=== PATIENT | female | born 1950 | race African-American/Black ===

== ENCOUNTER 2017-02-03 12:41 | Inpatient (IN) | payer OTHER ==
[~2017-02-03] VITALS: Ht 160 cm; Wt 80.3 kg
--- NOTE | ~2017-02-03 | D ---
[facility] [place] [address] DISCHARGE SUMMARY Name: CLAUDIA EVANS Room #: 206-[facility] IN M.R.#: [id number] Admission: 02/03/17 Attend Phys: Gustavo Hawkins MD Discharge: 02/06/17 Date of : 52 Report #: [id number] THIS REPORT FOR: //name// CC: Gustavo Valencia DATE OF SERVICE: 02/06/2017 DISCHARGE DIAGNOSES: 1. Status post mechanical mitral valve replacement. 2. Cervical degenerative joint disease. 3. Hypertension, atrial fibrillation. 4. Type 2 diabetes. CONSULTS: Cardiology. PROCEDURES: None. HOSPITAL COURSE: The patient is a 66-year-old female with a history of AFib, mechanical mitral valve, hypertension, presented to the ER secondary to shortness of breath. Please see details of admission dictated by Dr. Gustavo Hawkins on 02/03/2017. The patient was initially felt to have a little bit of volume overload. However, Cardiology did not feel it associated with CHF. They felt that her symptoms were noncardiac related. Additionally, she had a CT angio of her chest that was negative for PE, but did show pulmonary arterial hypertension. She also complained of some facial pain secondary to recent dental work and a CT was negative for abscess or any other acute abnormalities. Since coming in the hospital, she is feeling a lot better, has no more shortness of breath or chest pain. She was concerned about going home and wanted to go to rehab instead. Rehab saw her and felt that she was too functioning. Otherwise, she denies any complaints and nurses report no other problems. She was taken off her metoprolol because of periods of bradycardia. She does have a history of atrial fibrillation, may need am evaluation with a pacemaker in the future, although she is currently not symptomatic from this regards. DISCHARGE DISPOSITION: To home. DISCHARGE PHYSICAL EXAMINATION: VITAL SIGNS: Temperature 97, pulse 51, blood pressure 142/91, O2 sat 95% on room air. GENERAL: She is awake, alert, answering question appropriately, no acute respiratory distress. HEENT: Normocephalic, atraumatic. NECK: Supple. Pupils equal. CARDIOVASCULAR: Regular rate and rhythm. No murmurs. LUNGS: Clear to auscultation bilaterally. No crackles or wheeze. [facility] [address] [place] [address] DISCHARGE SUMMARY Name: CLAUDIA EVANS Room #: [address] [place] [address] IN M.R.#: [id number] Admission: 02/03/17 Attend Phys: Gustavo Hawkins MD Discharge: 02/06/17 Date of : 52 Report #: [id number] ABDOMEN: Soft, no distention or tenderness. EXTREMITIES: No edema. NEUROLOGIC: Nonfocal. DISCHARGE MEDICATIONS: She will go home on metformin 500 b.i.d., Zantac 75 b.i.d., Lasix 40 daily, aspirin 81 daily, Synthroid 75 mcg daily, trazodone p.r.n., Crestor 10 daily, lisinopril 5 daily, Os-Alessandro p.r.n., Coumadin at previous dosing, potassium chloride 20 mEq daily, Fosamax 70 daily, [place] p.r.n., Lidoderm patch daily, nortriptyline 10 daily, metoprolol. DIET: Cardiac, low sodium diabetic diet. ACTIVITY: As tolerated. FOLLOWUP: Follow up with Cardiology in 2 weeks. Follow up with primary care in 1 week and to seek immediate medical attention if symptoms worsen or recur or if she has any significant medical concerns. Discharge planning took 35 minutes. I explained to her discharge diagnoses, treatment plan and appropriate followup in detail. She had no further questions. By: [id number] Shiela Badillo MD /nt
--- NOTE | ~2017-02-03 | EKG ---
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 : 1950 Requested By: Solomon Mrianda Order Number: [id number] MD: Murtaza Mendoza Measurements Intervals [place] Rate: 90 P: [place]: QRS: 113 QRSD: 108 T: 44 QT: 360 QTc: 441 Interpretive Statements Atrial fibrillation Ventricular premature complex Right axis deviation Abnormal R-wave progression, late transition Abnormal T, consider ischemia, anterior leads Compared to ECG 12/01/2016 15:47:28 Ventricular premature complex(es) now present Electronically Signed On 02-04-2017 8:29:23 CDT by Murtaza Mendoza [email or web address] <ELECTRONICALLY SIGNED> By: Murtaza Mendoza MD, FACC 02/04/17 0829 1246 1246 Murtaza Mendoza MD, [facility] /EPI
--- NOTE | ~2017-02-03 | HC ---
[facility] [place] [address] CONSULTATION Name: CLAUDIA EVANS Room #: 206- ADM IN M.R.#: [id number] Admission: 02/03/17 Attend Phys: Gustavo Hawkins MD Discharge: Date of : 52 Report #: [id number] THIS REPORT FOR: //name// CC: Gustavo Valencia HISTORY OF PRESENT ILLNESS: The patient is a 66-year-old female, originally admitted with shortness of breath, question of paroxysmal nocturnal dyspnea. She was noted to have acute congestive heart failure. She was begun on diuresis. She does have pulmonary hypertension. She has a history of right neck pain for [address] of the head was negative. She is debilitated and we are seeing her in rehabilitation medicine consultation. PAST MEDICAL HISTORY: Includes atrial fibrillation, coronary artery disease, hypertension, she had mitral valve replacement, diabetes mellitus, and she had a prior CVA approximately 15 years ago. MEDICATIONS: Please see the full medication listing. ALLERGIES: No known drug allergies. SOCIAL HISTORY: Lives in a house with her sister, one step in, there are 12 steps down to the basement. She was noted to be premorbidly independent with ADLs and gait without adaptive aids. She was not on any O2 premorbidly. REVIEW OF SYSTEMS: No complaints of chest pain, shortness of breath, or abdominal discomfort. PHYSICAL EXAMINATION: GENERAL: A 66-year-old female, in obvious distress, pleasant, facies appeared symmetric. VITAL SIGNS: Last recorded temperature 98.2, pulse 72, respirations 18, and blood pressure 115/74. EXTREMITIES: Functional range of motion of both upper and lower extremities. Strength is a grade 4-/5. DTRs are trace to 1. She has been getting up to ambulate in the room with close assistance, tends to hold on to the wall, was not utilizing a walker. Did a bath earlier with the patient care assistance. ASSESSMENT: A 66-year-old female with the following problems list: 1. Generalized weakness and debilitation. 2. Acute congestive heart failure with subsequent diuresis. 3. Pulmonary hypertension. 4. History of mitral valve replacement. 5. Right-sided neck pain with negative CT scan. 6. Atrial fibrillation. 7. Coronary artery disease. 8. Prior history of a cerebrovascular accident [address] [address] CONSULTATION Name: CLAUDIA EVANS Room #: [facility] IN .R.#: [id number] Admission: 02/03/17 Attend Phys: Gustavo Hawkins MD Discharge: Date of : 52 Report #: [id number] PLAN: Therapy evaluations are underway. Insurance will need to be checked regarding rehab therapy issues. We will be glad to follow along with you. By: [id number] Praful Sheets MD /nt
--- NOTE | ~2017-02-03 | HC ---
[facility] [place] [address] CONSULTATION Name: CLAUDIA EVANS Room #: 206- ADM IN M.R.#: [id number] Admission: 02/03/17 Attend Phys: Gustavo Hawkins MD Discharge: Date of : 52 Report #: [id number] THIS REPORT FOR: //name// CC: Gustavo Valencia MD DATE OF SERVICE: 02/04/2017 HISTORY OF PRESENT ILLNESS: The patient is a 66-year-old single black female who I was asked to see in the hospital today after she complained of shoulder pain. The patient apparently underwent mitral valve replacement using a metal valve in [facility] in 2008. She has been chronically anticoagulated. She has a history of atrial fibrillation. Nuclear stress test in 2016 showed no ischemia with an ejection fraction of 70%. Echocardiogram in 2016 showed an ejection fraction of 55%, dilated left atrium. The mechanical valve had no significant regurgitation. The patient actually was just seen by my partner, Dr. Gregory 6 weeks ago. She had had edema and the dose of Lasix had been increased. She did complain of some neck pain at that time. The patient has been going to the pain clinic recently for the neck pain. She has both felt to have neuropathic pain and cervical radiculopathy. She was started on Tegretol. The patient was brought to the Emergency Room last night complaining of intermittent chest pain and a cough, some edema and headache. She was admitted for further evaluation and treatment. She denied any palpitations or syncope. PAST MEDICAL HISTORY: Otherwise significant for no other major surgical procedures. She has a history of hypertension, diabetes, hyperlipidemia, hypothyroidism. MEDICATIONS: Consist of Lasix, warfarin, Crestor, aspirin, lisinopril, trazodone, Synthroid, ranitidine, metformin. ALLERGIES: She has no known drug allergies. FAMILY HISTORY: Her grandfather had heart disease. SOCIAL HISTORY: She is single. She does have a child who is in [place] with a sister. No smoking or alcohol abuse. 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 REVIEW OF SYSTEMS: No history of stroke, asthma, peptic ulcer disease, liver disease, kidney disease, cancer, psychiatric illness, chronic skin condition. PHYSICAL EXAMINATION: GENERAL: Revealed a middle-aged female lying in bed. She appeared in no distress. [address] [place] [address] CONSULTATION Name: CLAUDIA EVANS Room #: [address] [place] [address] IN M.R.#: [id number] Admission: 02/03/17 Attend Phys: Gustavo Hawkins MD Discharge: Date of : 52 Report #: [id number] VITAL SIGNS: She had a blood pressure 114/60, pulse 60. She is afebrile. HEENT: She is anicteric. Conjunctivae are pink. Mucous membranes are moist. NECK: Veins nondistended. No carotid bruits heard. CHEST: Clear to auscultation. CARDIAC: Regular rate and rhythm. A metallic mitral opening and closing sound, grade 2 systolic ejection murmur. ABDOMEN: Soft, nontender. EXTREMITIES: Had no edema. Dorsalis pedis pulse 1+ bilaterally. SKIN: Warm and dry. NEUROLOGIC: Nonfocal. ECG showed atrial fibrillation, right bundle branch block. LABORATORY WORK: Sodium 138, potassium 4.1, creatinine 0.8, glucose 198. Troponin 0.04. INR was 2.3. White blood cell count 7.2, hemoglobin 12.8, hematocrit 39.5. She had a chest x-ray done in the Emergency Room last night that showed elevated right hemidiaphragm, cardiomegaly. She had a CT scan of the chest using a PE protocol that showed pulmonary hypertension findings but no pulmonary embolus. IMPRESSION AND RECOMMENDATIONS: 1. Chest pain. Suspect noncardiac. No history of coronary artery disease. Nuclear stress test last fall showed no ischemia. I would not recommend repeat stress testing at this time. 2. Previous mitral valve replacement. I would continue chronic anticoagulation and maintain an INR of 2.5-3.5. 3. Hypertension. The patient has been on an MARY inhibitor. 4. Hyperlipidemia. The patient is on a statin drug. 5. Diabetes. 6. Permanent atrial fibrillation. Rate controlled. The patient is anticoagulated. 7. Neck pain secondary to neuropathy. <ELECTRONICALLY SIGNED> By: Praful Wright MD, [facility] 02/06/17 0916 0929 1433 Praful Wright MD, FACC /nt
[~2017-02-03 12:41] MED LIST: ALENDRONATE SOD70 MG PO; ASPIRIN EC81 M1 PO; CALCIUM 500 +1 EAC5 PO; COCET PLUS TAB1 EACH PO; COUMADIN; COUMADIN 4 MG TA4 M1 PO; COUMADIN 5 MG TA5 M1 PO; CRESTOR10 MG PO; DESYREL50 MG PO; ENOXAPARIN80 MG/0.1 SUBQ; FUROSEMIDE 40 M40 MG PO; GLUCOPHAGE500 MG PO; HYDROCODONE-AP1 EAC6 PO; KLOR-CON 1010 MEQ PO; LEVOTHROID; LIDODERM 5%1 PATC1 TRANSDERM; METOPROLOL SUCC25 M1 PO; NORCO 5-325 TA1 EACH PO; NORTRIPTYLINE H10 M2 PO; OSELB75 PO; PRINIVIL5 MG PO; RANITIDINE 150150 MG PO; SYNTHROID100 MCG PO; TEGRETOL200 MG PO; TOPROL XL25 MG PO; VITAMIN D31000 UNI2 PO; ZOCOR80 MG PO
[2017-02-03 12:44] VITALS: BP 126/74
[2017-02-03 13:33] LABS: ABG SAMPLE TYPE ARTERIAL; BE(vivo) 5.1 mmol/L (-2 to +3); HCO3 30.1 mmol/L (22.0-26.0); LACTATE 1.07 mmol/L (0.5-2.0); O2(CT) 17.6 mL/dL (15.0-23.0); O2Hb 89.3 % (92.0-98.0); PCO2 45.4 mmHg (35.0-45.0); PO2 57.2 mmHg (80.0-100.0); pH 7.439 (7.360-7.450); sO2 90.5 % (92.0-98.0); tCO2 31.5 mmol/L (24.0-30.0)
[2017-02-03 13:35] LABS: STICK SITE R.RADIAL
[2017-02-03 13:36] LABS: ABG COMMENT NO COMPLICATIONS.
[2017-02-03 13:39] LABS: BASOPHILS 1.2 % (0.0-2.0); EOSINOPHILS 1.4 % (0.0-3.0); HEMATOCRIT 41.8 % (37.0-47.0); HEMOGLOBIN 13.3 gm/dL (12.0-15.0); LYMPHOCYTES 20.9 % (24.0-44.0); MCH 25.5 pg (26.0-34.0); MCHC 31.8 g/dL (28.0-37.0); MCV 80.2 fL (80.0-100.0); MONOCYTES 9.2 % (1.0-8.0); PLATELET COUNT 189 thou/uL (150-400); POLYS 67.3 % (36.0-66.0); RBC 5.21 mil/uL (4.20-5.00); RDW 16.5 % (10.5-14.5)
[2017-02-03 13:42] LABS: MANUAL DIFF NO
[2017-02-03 13:47] LABS: ANION GAP 6 mmol/L (7-16); BUN 14 mg/dL (7-18); CALCIUM 8.8 mg/dL (8.5-10.1); CHLORIDE 102 mmol/L (98-107); CO2 30 mmol/L (21-32); CREATININE 0.7 mg/dL (0.6-1.0); GLUCOSE 112 mg/dL (74-106); SODIUM 138 mmol/L (136-145)
[2017-02-03 13:52] LABS: INR 2.3; PROTIME 23.4 Seconds (9.3-11.4)
[2017-02-03 14:00] LABS: NT-PRO BRAIN NAT PEPTIDE 137 pg/mL (<300); TROPONIN-I < 0.04 ng/mL (<0.04-0.07)
[2017-02-03 17:27] VITALS: BP 130/74
[2017-02-03 17:45] VITALS: BP 153/69
[2017-02-03 19:52] VITALS: BP 129/64
[2017-02-03 23:46] VITALS: BP 129/80
[2017-02-04 00:35] LABS: ABSOLUTE NEUTROPHILS 4.9 thou/uL (1.4-8.2); BASOPHILS 0.9 % (0.0-2.0); EOSINOPHILS 2.4 % (0.0-3.0); HEMATOCRIT 39.5 % (37.0-47.0); HEMOGLOBIN 12.8 gm/dL (12.0-15.0); LYMPHOCYTES 17.4 % (24.0-44.0); MCH 25.7 pg (26.0-34.0); MCHC 32.3 g/dL (28.0-37.0); MCV 79.4 fL (80.0-100.0); MONOCYTES 11.3 % (1.0-8.0); PLATELET COUNT 200 thou/uL (150-400); RBC 4.97 mil/uL (4.20-5.00); RDW 16.7 % (10.5-14.5); WBC 7.2 thou/uL (4.0-11.0)
[2017-02-04 00:39] LABS: MANUAL DIFF NO
[2017-02-04 00:50] LABS: ANION GAP 8 mmol/L (7-16); BUN 17 mg/dL (7-18); CHLORIDE 97 mmol/L (98-107); CO2 33 mmol/L (21-32); CREATININE 0.8 mg/dL (0.6-1.0); GLUCOSE 198 mg/dL (74-106); POTASSIUM 4.1 mmol/L (3.5-5.1); SODIUM 138 mmol/L (136-145); TROPONIN-I < 0.04 ng/mL (<0.04-0.07)
[2017-02-04 03:40] VITALS: BP 113/61
[2017-02-04 07:59] VITALS: BP 114/61
[2017-02-04 12:12] VITALS: BP 104/52
[2017-02-04 16:39] VITALS: BP 113/68
[2017-02-04 19:54] VITALS: BP 108/64
[2017-02-05 03:15] VITALS: BP 108/50
[2017-02-05 03:35] LABS: INR 2.2; PROTIME 22.4 Seconds (9.3-11.4)
[2017-02-05 07:22] VITALS: BP 115/74
[2017-02-05 08:45] VITALS: BP 115/74
[2017-02-05 12:03] VITALS: BP 105/68
[2017-02-05 16:16] VITALS: BP 113/67
[2017-02-05 19:36] VITALS: BP 153/74
[2017-02-06] VITALS (8 sets, daily range): BP systolic 114–142; BP diastolic 61–91
[2017-02-06 04:08] LABS: HEMATOCRIT 41.1 % (37.0-47.0); HEMOGLOBIN 13.2 gm/dL (12.0-15.0); MCH 25.7 pg (26.0-34.0); MCHC 32.2 g/dL (28.0-37.0); MCV 79.8 fL (80.0-100.0); RBC 5.15 mil/uL (4.20-5.00); WBC 5.4 thou/uL (4.0-11.0)
[2017-02-06 04:17] LABS: CALCIUM 8.9 mg/dL (8.5-10.1); CREATININE 0.7 mg/dL (0.6-1.0); POTASSIUM 3.7 mmol/L (3.5-5.1)
[2017-02-06 04:18] LABS: INR 2.1; PROTIME 21.6 Seconds (9.3-11.4)
== END 2017-02-06 18:30 | disposition home health service (06) | DRG 313 ==
LOC: ER 12:41 → EROBS 15:36 → 2N 15:36
PROVIDERS: Emergency Medicine; Family Medicine; Internal Medicine Cardiovascular Disease; Nurse Practitioner
DX: R07.9 Chest pain, unspecified (principal); I11.0 Hypertensive heart disease with heart failure; E78.5 Hyperlipidemia, unspecified; E03.9 Hypothyroidism, unspecified; I48.2 Chronic atrial fibrillation; E11.40 Type 2 diabetes mellitus with diabetic neuropathy, unspecified; I25.10 Atherosclerotic heart disease of native coronary artery without angina pectoris; R53.81 Other malaise; M47.812 Spondylosis without myelopathy or radiculopathy, cervical region; I50.9 Heart failure, unspecified; Z82.49 Family history of ischemic heart disease and other diseases of the circulatory system; Z86.73 Personal history of transient ischemic attack (TIA), and cerebral infarction without residual deficits; Z87.891 Personal history of nicotine dependence; Z95.2 Presence of prosthetic heart valve
CPT/HCPCS: 10081

== ENCOUNTER 2017-10-24 05:38 | Day surgery (SDC) | payer OTHER ==
[~2017-10-24] VITALS: Ht 160 cm; Wt 77.6 kg
--- NOTE | ~2017-10-24 | S ---
[facility] [place] [address] SURGICAL PATH RPT PROCEDURE Name: CLAUDIA EVANS Room #: DEP [facility]..#: [id number] Admission: 10/24/17 Date of : 52 Discharge: 10/24/17 Report #: [id number] Path Case #: [id number] PATHOLOGY REPORT COLLECTION DATE: 10/24/2017 RECEIVED DATE: 10/24/2017 SUBMITTING PHYS: Dr. Carlos Enrique Panchal OTHER PHYS: Dr. Dai Valencia SPECIMEN(S) RECEIVED: A.Pretibial mass * * * * * * * * * * * * FINAL DIAGNOSIS: Soft tissue mass, "pretibial mass", excision: - Angioleiomyoma. COMMENT: Properly-controlled immunohistochemical stains are performed. Block A1 CD34 - Highlights the vascular spaces. SMA - Spindled cells reactive. S100 - Spindled cells nonreactive. (CLW:aurora; 10/28/2017) PATHOLOGIST: Arielle Miller M.D. REPORT ELECTRONICALLY SIGNED BY: Arielle Miller M.D. DATE/TIME: 10/28/2017 16:44 * * * * * * * * * * * * GROSS PATHOLOGY: Received in formalin labeled "Claudia Evans, pretibial mass" and consists of an unoriented ellipse of brown skin measuring 1.2 cm in length, 0.7 cm wide, and 0.5 cm thick. An obvious epidermal lesion is not grossly identified. The specimen is inked and totally submitted A1-A2, A2 tips. (EMMY; 10/24/2017) CLINICAL HISTORY: Mass left knee area INITIAL CPT CODE(S): A; 21055, 48718, 55857, 06249 [facility] [address] [place] [address] SURGICAL PATH RPT PROCEDURE Name: CLAUDIA EVANS Room #: DEP [facility] M.R.#: [id number] Admission: 10/24/17 Date of : 52 Discharge: 10/24/17 Report #: [id number] Path Case #: [id number] [address] [facility] , [place] [address] Technical services performed by [facility] at [address] [place] [address], [facility] [address] [address]. [facility] [address] [place] [address] PHONE: [phone] DIRECTOR: Arsen Devine M.D. * * * END OF REPORT * * *
--- NOTE | ~2017-10-24 | O ---
[facility] [place] [address] OPERATIVE REPORT Name: CLAUDIA EVANS Room #: DEP [facility]..#: [id number] Admission: 10/24/17 Attend Phys: Carlos Enrique Panchal MD Discharge: 10/24/17 Date of : 52 Report #: [id number] THIS REPORT FOR: //name// CC: Dai Panchal DATE OF SERVICE: 10/24/2017 PATIENT OF: Dr. Carlos Enrique Panchal and Dr. Dai Valencia. PREOPERATIVE DIAGNOSIS: Painful left pretibial 1.5 cm mass with need for chronic anticoagulation. POSTOPERATIVE DIAGNOSIS: Painful left pretibial 1.5 cm mass with need for chronic anticoagulation. PROCEDURE: Excision of 1.5 cm x 1 cm skin and subcutaneous left pretibial mass with complex layered closure and extensive hemostasis. SURGEON: Carlos Enrique Panchal MD ANESTHESIA: Local. The patient was brought to the operating room and placed on operative table in the supine position. The patient chronically was anticoagulated on warfarin as left on her anticoagulation. The patient was placed on the operative table in the supine position. Left leg was then prepped and draped in a sterile fashion. Skin and subcutaneous tissue were then infiltrated with 0.5% Marcaine and 1% Xylocaine with epinephrine. An elliptical skin incision was performed around this 1.5 x 1 cm mass using #15 scalpel blade. Hemostasis obtained using the electrocautery. Meticulous hemostasis was obtained using electrocautery due to the patient's anticoagulation. The mass was excised down to the fascia. It was excised and sent to pathology for permanent study. After assuring hemostasis was intact, the deep and superficial subcutaneous tissue was then reapproximated using simple interrupted 4-0 Monocryl sutures. Skin was then closed using interrupted vertical mattress 4-0 nylon sutures. The wound was then dressed with Telfa, 4 x 4 gauze, sponge, Kerlix, [place] wrap. The patient was then taken to the outpatient area, awake, alert and in good condition. Estimated blood loss was less than 5 mL and the patient tolerated the procedure well. All sponge, lap and instrument counts correct times 2. <ELECTRONICALLY SIGNED> By: Carlos Enrique Panchal MD 10/29/17 1111 1422 1523 Carlos Enrique Panchal MD /nt
[~2017-10-24 05:38] MED LIST changes: -DESYREL50 MG PO; -LIDODERM 5%1 PATC1 TRANSDERM; +LIDODERM1 EACH TOP; +POTASSIUM20 PO; +TRAZODONE HCL50 MG PO
[2017-10-24 12:52] VITALS: BP 115/84
[2017-10-24] MEDS ORDERED: NORCO 5-325 TA1 EACH PO (14:26)
[2017-10-24 14:39] VITALS: BP 115/84
== END 2017-10-24 16:44 | disposition home or self-care (01) ==
LOC: TBA 05:38 → OR 05:38
DX: D16.22 Benign neoplasm of long bones of left lower limb (principal); I11.0 Hypertensive heart disease with heart failure; I50.9 Heart failure, unspecified; I48.91 Unspecified atrial fibrillation; E11.9 Type 2 diabetes mellitus without complications; E78.00 Pure hypercholesterolemia, unspecified; K21.9 Gastro-esophageal reflux disease without esophagitis; Z98.890 Other specified postprocedural states; Z79.82 Long term (current) use of aspirin; Z95.2 Presence of prosthetic heart valve; Z86.73 Personal history of transient ischemic attack (TIA), and cerebral infarction without residual deficits; Z79.01 Long term (current) use of anticoagulants
CPT/HCPCS: 50010; 50101; 50386; 50403; 51636; 56524; 56526; 56528

== ENCOUNTER 2017-12-19 18:59 | Inpatient (IN) | payer OTHER ==
[~2017-12-19] VITALS: Ht 162.6 cm; Wt 75.7 kg
--- NOTE | ~2017-12-19 | EKG ---
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 : 1950 Requested By: Malika Peñaloza Order Number: [id number] MD: Daniel Houston Measurements Intervals [place] Rate: 57 P: [place]: QRS: 71 QRSD: 115 T: QT: 395 QTc: 385 Interpretive Statements Atrial fibrillation Incomplete right bundle branch block Nonspecific T abnormalities, lateral leads Compared to ECG 02/03/2017 12:46:34 Incomplete right bundle-branch block now present Ventricular premature complex(es) no longer present Right-axis deviation no longer present Possible ischemia no longer present T-wave abnormality still present Electronically Signed On 12-20-2017 13:24:29 SALVAGE DIVER by Daniel Houston [email or web address] <ELECTRONICALLY SIGNED> By: Daniel Houston MD 12/20/17 1324 30 30 Daniel Houston MD /EPI
[2017-12-19 19:09] VITALS: BP 150/55
[2017-12-19 19:57] LABS: ABSOLUTE NEUTROPHILS 3.8 thou/uL (1.4-8.2); BASOPHILS 0.8 % (0.0-2.0); EOSINOPHILS 1.6 % (0.0-3.0); HEMATOCRIT 41.2 % (37.0-47.0); HEMOGLOBIN 13.2 gm/dL (12.0-15.0); LYMPHOCYTES 30.1 % (24.0-44.0); MCH 25.8 pg (26.0-34.0); MCHC 32.1 g/dL (28.0-37.0); MCV 80.6 fL (80.0-100.0); PLATELET COUNT 158 thou/uL (150-400); POLYS 58.5 % (36.0-66.0); RBC 5.12 mil/uL (4.20-5.00); RDW 16.6 % (10.5-14.5); WBC 6.5 thou/uL (4.0-11.0)
[2017-12-19 20:09] LABS: ANION GAP 6 mmol/L (7-16); BUN 14 mg/dL (7-18); CALCIUM 9.5 mg/dL (8.5-10.1); CHLORIDE 104 mmol/L (98-107); CO2 31 mmol/L (21-32); CREATININE 1.1 mg/dL (0.6-1.0); GLUCOSE 191 mg/dL (74-106); POTASSIUM 3.8 mmol/L (3.5-5.1); SODIUM 141 mmol/L (136-145)
[2017-12-19 20:17] LABS: TROPONIN-I < 0.04 ng/mL (<0.06)
[2017-12-19 21:08] LABS: INR 1.9; PROTIME 19.7 Seconds (9.3-11.4)
[2017-12-19 21:57] LABS: URINE BILIRUBIN NEGATIVE (Negative); URINE BLOOD TRACE (Negative); URINE CLARITY CLEAR; URINE COLOR YELLOW; URINE GLUCOSE-RANDOM* NEGATIVE (Negative); URINE KETONES NEGATIVE (Negative); URINE LEUKOCYTES-REFLEX NEGATIVE (Negative); URINE NITRITE-REFLEX NEGATIVE (Negative); URINE PROTEIN (DIPSTICK) TRACE (Negative); URINE SPECIFIC GRAVITY 1.025 (1.005-1.035); URINE UROBILINOGEN 0.2 E.U./dl (0.2-1.0)
[2017-12-19 22:10] VITALS: BP 129/41
[2017-12-19 23:09] VITALS: BP 118/71
[2017-12-19 23:50] VITALS: BP 126/70
[2017-12-20 04:21] VITALS: BP 147/747
[2017-12-20 05:21] LABS: HEMATOCRIT 41.6 % (37.0-47.0); HEMOGLOBIN 13.2 gm/dL (12.0-15.0); MCH 25.7 pg (26.0-34.0); MCHC 31.7 g/dL (28.0-37.0); MCV 81.1 fL (80.0-100.0); RBC 5.14 mil/uL (4.20-5.00); RDW 16.6 % (10.5-14.5); WBC 7.5 thou/uL (4.0-11.0)
[2017-12-20 05:33] LABS: CALCIUM 9.5 mg/dL (8.5-10.1); CREATININE 0.9 mg/dL (0.6-1.0); INR 2.2; POTASSIUM 4.3 mmol/L (3.5-5.1); PROTIME 22.7 Seconds (9.3-11.4)
[2017-12-20 08:19] VITALS: BP 135/68
[2017-12-20] MEDS ORDERED: LEVAQUIN 500 M500 M2 PO (10:28)
[2017-12-20] MEDS ORDERED: PREDNISONE 10 M10 MG PO (10:29)
[2017-12-20 11:03] VITALS: BP 135/68
== END 2017-12-20 12:32 | disposition home or self-care (01) | DRG 189 ==
LOC: ER 18:59 → EROBS 21:37 → 4E 21:37
PROVIDERS: Nurse Practitioner Family
DX: J96.20 Acute and chronic respiratory failure, unspecified whether with hypoxia or hypercapnia (principal); J44.1 Chronic obstructive pulmonary disease with (acute) exacerbation; I69.354 Hemiplegia and hemiparesis following cerebral infarction affecting left non-dominant side; I50.9 Heart failure, unspecified; I48.91 Unspecified atrial fibrillation; I11.0 Hypertensive heart disease with heart failure; E11.9 Type 2 diabetes mellitus without complications; K21.9 Gastro-esophageal reflux disease without esophagitis; E78.00 Pure hypercholesterolemia, unspecified; Z95.2 Presence of prosthetic heart valve; Z87.891 Personal history of nicotine dependence; Z79.82 Long term (current) use of aspirin; Z79.84 Long term (current) use of oral hypoglycemic drugs; Z79.01 Long term (current) use of anticoagulants; Z79.899 Other long term (current) drug therapy
CPT/HCPCS: 10084

== ENCOUNTER 2018-01-04 18:40 | Emergency (ER) | payer OTHER ==
[~2018-01-04] VITALS: Ht 160 cm; Wt 74.8 kg
--- NOTE | ~2018-01-04 | EKG ---
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
[~2018-01-04 18:40] MED LIST changes: +LEVAQUIN 500 M500 M2 PO; +PREDNISONE 10 M10 MG PO
[2018-01-04 19:00] LABS: ABSOLUTE NEUTROPHILS 4.7 thou/uL (1.4-8.2); BASOPHILS 1.3 % (0.0-2.0); EOSINOPHILS 1.9 % (0.0-3.0); HEMATOCRIT 45.5 % (37.0-47.0); HEMOGLOBIN 14.8 gm/dL (12.0-15.0); MCH 26.4 pg (26.0-34.0); MCHC 32.6 g/dL (28.0-37.0); MONOCYTES 11.1 % (1.0-8.0); PLATELET COUNT 163 thou/uL (150-400); POLYS 52.7 % (36.0-66.0); RBC 5.62 mil/uL (4.20-5.00); RDW 17.2 % (10.5-14.5)
[2018-01-04 19:09] LABS: ANION GAP 7 mmol/L (7-16); BUN 16 mg/dL (7-18); CALCIUM 9.5 mg/dL (8.5-10.1); CHLORIDE 101 mmol/L (98-107); CO2 32 mmol/L (21-32); CREATININE 0.9 mg/dL (0.6-1.0); GLUCOSE 116 mg/dL (74-106); SODIUM 140 mmol/L (136-145)
[2018-01-04 19:15] LABS: POTASSIUM 4.2 mmol/L (3.5-5.1)
[2018-01-04 19:17] LABS: TROPONIN-I < 0.04 ng/mL (<0.06)
[2018-01-04] MEDS ORDERED: PREDNISONE 20 M20 M1 PO (22:04)
[2018-01-04] MEDS ORDERED: ALBUTEROL2.5 MG/0.1 INH (22:07)
[2018-01-04 22:12] VITALS: BP 129/74
== END 2018-01-04 22:29 | disposition home or self-care (01) ==
LOC: ER 18:40
PROVIDERS: Emergency Medicine
DX: J44.1 Chronic obstructive pulmonary disease with (acute) exacerbation (principal); E11.9 Type 2 diabetes mellitus without complications; K21.9 Gastro-esophageal reflux disease without esophagitis; E03.9 Hypothyroidism, unspecified; E78.00 Pure hypercholesterolemia, unspecified; I11.0 Hypertensive heart disease with heart failure; I50.9 Heart failure, unspecified; I48.91 Unspecified atrial fibrillation; Z87.891 Personal history of nicotine dependence

== ENCOUNTER → 2018-01-23 | Outpatient (CLI) | payer OTHER ==
[~2018-01-23] MED LIST changes: +ALBUTEROL2.5 MG/0.1 INH; +PREDNISONE 20 M20 M1 PO
[2018-01-23 12:14] LABS: ABSOLUTE NEUTROPHILS 3.4 thou/uL (1.4-8.2); BASOPHILS 1.2 % (0.0-2.0); EOSINOPHILS 0.6 % (0.0-3.0); HEMATOCRIT 42.9 % (37.0-47.0); HEMOGLOBIN 14.1 gm/dL (12.0-15.0); INR 4.5; LYMPHOCYTES 26.3 % (24.0-44.0); MCH 26.8 pg (26.0-34.0); MCHC 32.8 g/dL (28.0-37.0); MCV 81.6 fL (80.0-100.0); MONOCYTES 8.8 % (1.0-8.0); PLATELET COUNT 150 thou/uL (150-400); POLYS 63.1 % (36.0-66.0); PROTIME 44.9 Seconds (9.3-11.4); RBC 5.26 mil/uL (4.20-5.00); RDW 17.1 % (10.5-14.5); WBC 5.5 thou/uL (4.0-11.0)
[2018-01-23 12:35] LABS: ALBUMIN 3.8 g/dL (3.4-5.0); CREATININE 0.9 mg/dL (0.6-1.0); POTASSIUM 4.1 mmol/L (3.5-5.1); TOTAL BILIRUBIN 0.7 mg/dL (<0.1-1.0); TOTAL PROTEIN 6.6 g/dL (6.4-8.2)
== END ==
LOC: LABMALL 11:25 → RAD 11:25
PROVIDERS: Internal Medicine Pulmonary Disease
DX: I51.7 Cardiomegaly (principal); J90 Pleural effusion, not elsewhere classified; I87.8 Other specified disorders of veins

== ENCOUNTER → 2018-03-30 | Outpatient (CLI) | payer OTHER ==
[2018-03-30 09:28] LABS: HEMOGLOBIN 13.9 gm/dL (12.0-15.0); MCH 26.3 pg (26.0-34.0); MCHC 31.6 g/dL (28.0-37.0); MCV 83.2 fL (80.0-100.0); PLATELET COUNT 175 thou/uL (150-400); RBC 5.29 mil/uL (4.20-5.00); RDW 15.9 % (10.5-14.5); WBC 5.6 thou/uL (4.0-11.0)
[2018-03-30 09:33] LABS: CALCIUM 9.2 mg/dL (8.5-10.1); CREATININE 0.7 mg/dL (0.6-1.0); POTASSIUM 4.2 mmol/L (3.5-5.1)
[2018-03-30 09:48] LABS: ABSOLUTE NEUTROPHILS 3.1 thou/uL (1.4-8.2); PLATELET ESTIMATE NORMAL
== END ==
LOC: CAT 08:17
PROVIDERS: Internal Medicine Pulmonary Disease
DX: I28.1 Aneurysm of pulmonary artery (principal); J98.11 Atelectasis; M47.894 Other spondylosis, thoracic region; I10 Essential (primary) hypertension; R59.9 Enlarged lymph nodes, unspecified; Z95.4 Presence of other heart-valve replacement

== ENCOUNTER → 2018-04-06 | Outpatient (CLI) | payer OTHER ==
[2018-04-07 07:02] LABS: BE(vivo) 5.2 mmol/L (-2 to +3); HCO3 31.1 mmol/L (22.0-26.0); PCO2 50.5 mmHg (35.0-45.0); PO2 64.4 mmHg (80.0-100.0); pH 7.408 (7.360-7.450); sO2 92.5 % (92.0-98.0)
== END ==
LOC: SLEEPLAB 14:42
PROVIDERS: Internal Medicine Pulmonary Disease
DX: G47.33 Obstructive sleep apnea (adult) (pediatric) (principal); R06.02 Shortness of breath

== ENCOUNTER 2018-10-26 18:44 | Inpatient (IN) | payer OTHER ==
[~2018-10-26] VITALS: Ht 160 cm; Wt 78.9 kg
[2018-10-26 19:28] LABS: HEMATOCRIT 40.4 % (37.0-47.0); HEMOGLOBIN 12.9 gm/dL (12.0-15.0); MCH 26.1 pg (26.0-34.0); MCHC 31.9 g/dL (28.0-37.0); MCV 81.8 fL (80.0-100.0); PLATELET COUNT 138 thou/uL (150-400); RBC 4.93 mil/uL (4.20-5.00); RDW 15.9 % (10.5-14.5); WBC 5.9 thou/uL (4.0-11.0)
[2018-10-26 19:37] LABS: ANION GAP 4 mmol/L (7-16); BUN 10 mg/dL (7-18); CALCIUM 9.1 mg/dL (8.5-10.1); CHLORIDE 103 mmol/L (98-107); CO2 33 mmol/L (21-32); CREATININE 0.9 mg/dL (0.6-1.0); GLUCOSE 129 mg/dL (74-106); POTASSIUM 4.4 mmol/L (3.5-5.1); SODIUM 140 mmol/L (136-145)
[2018-10-26 19:45] LABS: ALBUMIN 3.6 g/dL (3.4-5.0); SGOT 42 U/L (15-37); SGPT 36 U/L (30-65); TOTAL BILIRUBIN 0.6 mg/dL (<0.1-1.0); TOTAL PROTEIN 6.9 g/dL (6.4-8.2); TROPONIN-I <0.06 ng/mL (<0.06)
[2018-10-26 20:01] LABS: ABSOLUTE NEUTROPHILS 3.6 thou/uL (1.4-8.2); ATYPICAL LYMPHS 1 %
[2018-10-26 20:02] LABS: ANISOCYTOSIS 1+
[2018-10-26 20:03] LABS: LARGE PLATELETS OCCASIONAL; POLYCHROMASIA OCCASIONAL
[2018-10-26 20:39] LABS: APTT 41.2 Seconds (24.5-32.8); INR 1.6
[2018-10-26 23:04] VITALS: BP 132/53
[2018-10-26 23:23] VITALS: BP 132/53
[2018-10-26 23:30] VITALS: BP 125/79
[2018-10-27 03:25] VITALS: BP 117/56
[2018-10-27 04:24] LABS: INR 1.5; PROTIME 15.7 Seconds (9.3-11.4)
[2018-10-27 04:26] LABS: POTASSIUM 4.6 mmol/L (3.5-5.1)
--- NOTE | 2018-10-27 07:58 | EKG ---
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 : 1950 Requested By: Yaneth Montgomery Order Number: [id number] MD: Murtaza Mendoza Measurements Intervals [place] Rate: 89 P: [place]: QRS: 120 QRSD: 106 T: 72 QT: 354 QTc: 431 Interpretive Statements Atrial fibrillation Anteroseptal infarct, age indeterminate Compared to ECG 01/04/2018 18:51:03 Myocardial infarct finding now present Premature ventricular complexes are now present Electronically Signed On 10-27-2018 7:58:15 SORT LINE by Murtaza Mendoza [email or web address] <ELECTRONICALLY SIGNED> By: Murtaza Mendoza MD, [facility] 10/27/18 0758 33 33 Murtaza Mendoza MD, [facility] /EPI
--- NOTE | 2018-10-27 08:01 | NUR ---
ASSUMED CARE OF PT AROUND 015, A&0X4, REPORTS OF CLOSE SBA, AMB ALONE AT HOME SOMETIMES W/WALKER, SISTER DRIVES HER TO APPTS. EXPIRATORY LUNG SOUNDS, ENCOURAGEMENT GIVEN ON DEEP SLOW INHALATIONS/EXHALATIONS TO HELP WITH SOA/ANXIETY, SHE ADMITS IMMEDIATELY TO RELIEF, COUGH, WEARS 02 AT HOME AT TIMES, 2L. NO SKIN ISSUES, ENCOURAGED HER TO USE CALL LIGHT FOR ANY NEEDS
--- NOTE | 2018-10-27 08:03 | NUR ---
patient is alert and oriented. sometimes fogethful. patient is sba to the bsc. patient is achs accu-cheks per diabeties. patient is uses a walker for long distance. patients lbm was the 7th. patient is a fib on tele. patient is on 4l nc. patient is resting comfortabley in bed. wcm. patient is progressing to goal.
[2018-10-27 08:12] VITALS: BP 114/69
[2018-10-27 12:02] VITALS: BP 130/64
[2018-10-27 15:41] VITALS: BP 117/59
[2018-10-27 21:47] VITALS: BP 137/56
--- NOTE | 2018-10-28 03:22 | NUR ---
NEEDS LOVENOX FOR INR OF 2
[2018-10-28 04:04] LABS: PROTIME 24.8 Seconds (9.3-11.4)
[2018-10-28 04:15] LABS: CALCIUM 9.5 mg/dL (8.5-10.1); CREATININE 0.9 mg/dL (0.6-1.0); INR 2.4; MAGNESIUM 1.9 mg/dL (1.8-2.4)
[2018-10-28 04:17] LABS: HEMATOCRIT 38.5 % (37.0-47.0); HEMOGLOBIN 12.3 gm/dL (12.0-15.0); MCH 26.4 pg (26.0-34.0); MCV 82.5 fL (80.0-100.0); RBC 4.66 mil/uL (4.20-5.00); RDW 16.1 % (10.5-14.5); WBC 8.3 thou/uL (4.0-11.0)
[2018-10-28 05:08] VITALS: BP 126/54
--- NOTE | 2018-10-28 05:15 | NUR ---
PATIENT IS ALERT AND ORIENTED. PATIENT IS UP AD ANDREA AND CALLS APPROPIATELY. PATIENT IS ON 2L NC DURING THE DAY AND CPAP AT HS. PATIENT IS ACHS BLOOD GLUCOSE. PATIENTS PAIN IS TREATED WITH PAIN MEDICAITON. PATIENT REQUIRES LOVENOX PER DOCTOR TO GET INR TO 2. PATIENT IS RESTING COMFORTABLEY IN BED. WCM. PATIENT IS PROGRESSING TO GOALS.
[2018-10-28 08:04] VITALS: BP 124/68
--- NOTE | 2018-10-28 09:00 | NUR ---
ASSUMED CARE OF PT AT 0700. ASSESSMENT COMPLETED AND CHARTED. A&O,X4. IRREGULAR HEART SOUNDS, HX CONTROLLED A.FIB, NO EDEMA. CLEAR/DIM LUNG SOUNDS, NO SOA, 2 L NC. OXYGEN USE AT HOME AND CPAP AT NIGHT. DENIES PAIN. DENIES N/V/D. LAST BM TODAY. SKIN INTACT. WILL CONTINUE TO MONITOR.
--- NOTE | 2018-10-28 10:15 | 2DMMODE ---
[facility] [address] [place] [address] 2 D/M-MODE ECHOCARDIOGRAM Name: CLAUDIA EVANS Room #: 364-P ADM IN M.R.#: [id number] Admission: 10/26/18 Attend Phys: Maximino Garcia MD Discharge: Date of : 52 Date of Service: 10/28/18 1015 Report #: [id number] THIS REPORT FOR: //name// APPROVED REPORT Study performed: 10/27/2018 13:37:38 EXAM: Comprehensive 2D, Doppler, and color-flow Echocardiogram Patient Location: Bedside Room #: 364 Status: routine BSA: 1.80 HR: 62 bpm BP: 130/64 mmHg Rhythm: Atrial Fibrillation Other Information Study Quality: Technically Difficult Indications COPD Diabetes Atrial Fibrillation Hypertension/HDD 2D Dimensions IVSd: 8.16 (7-11mm) LVOT Diam: 20.57 (18-24mm) LVDd: 43.18 mm PWd: 8.78 (7-11mm) Ascending Ao: 27.75 (22-36mm) LVDs: 29.72 (25-40mm) Aortic Root: 27.12 mm IVC: 23.00 mm Aortic Valve AoV Peak Monster.: 1.45 m/s AO Peak Gr.: 8.36 mmHg LVOT Max P.60 mmHg LVOT Max V: 1.18 m/s NAZIA Vmax: 2.72 cm2 Pulmonary Valve PV Peak Monster.: 1.02 m/s PV Peak Gr.: 4.18 mmHg Tricuspid Valve TR Peak Monster.: 2.65 m/s TR Peak Gr.: 28.06 mmHg [facility] [address] [place] [address] 2 D/M-MODE ECHOCARDIOGRAM Name: CLAUDIA EVANS Room #: 364-P ADM IN Sunny.#: [id number] Admission: 10/26/18 Attend Phys: Maximino Garcia MD Discharge: Date of : 52 Date of Service: 10/28/18 1015 Report #: [id number] Pressure: 38.00 mmHg Left Ventricle The left ventricle is normal size. There is normal LV segmental wall motion. There is normal left ventricular wall thickness. The left ventricular systolic function is normal. The left ventricular ejection fraction is within the normal range. LVEF is 55-60%. This study is not technically sufficient to allow evaluation of the LV diastolic function due to atrial fibrillation. Right Ventricle The right ventricle is normal size. The right ventricular systolic function is normal. Atria Left atrium is dilated. Right atrium is dilated. Aortic Valve The aortic valve is normal in structure. No aortic regurgitation is present. There is no aortic valvular stenosis. Mitral Valve Severe annular calcification and thickening. There is a mechanical mitral valve.It appears well seated.Leaflets appear normal. There is no mitral valve regurgitation noted. No evidence of mitral valve stenosis. Tricuspid Valve The tricuspid valve is normal in structure. There is trace to mild tricuspid regurgitation. Estimated PAP 38 mmHg. There is mild pulmonary hypertension. Pulmonic Valve The pulmonary valve is normal in structure. Trace pulmonic regurgitation. Great Vessels The aortic root is normal in size. IVC is dilated and collapses <50% with inspiration. Pericardium There is no pericardial effusion. <Conclusion> LVEF is 55-60%. There is normal LV segmental wall motion. [facility] [address] [place] [address] 2 D/M-MODE ECHOCARDIOGRAM Name: CLAUDIA EVANS Room #: 364-P ADM IN M.R.#: [id number] Admission: 10/26/18 Attend Phys: Maximino Garcia MD Discharge: Date of : 52 Date of Service: 10/28/18 1015 Report #: [id number] Left atrium is dilated. Right atrium is dilated. There is no aortic valvular stenosis. No aortic regurgitation is present. No evidence of mitral valve stenosis. There is no mitral valve regurgitation noted. <ELECTRONICALLY SIGNED> By: Rob Gregory MD, [facility] 10/28/18 1015 1015 1015 Rob Gregory MD, FACC /INF
--- NOTE | 2018-10-28 10:27 | NUR ---
INITIAL ASSESSMENT: Pt evaluated for d/c planning needs. Pt lives in house with her sister, [id number] and mother. Pt was independent with ADL's prior to admission to the hospital. Pt has walker, oxygen and CPAP at home. Pt has had [facility] in the past. Pt plans on returning home on d/c from hospital and is not interested in SNF at this time. Will remain available to assist as needed.
[2018-10-28 17:01] VITALS: BP 116/70
--- NOTE | 2018-10-28 17:28 | NUR ---
DR. LEE CALLED. OK TO D/C GRADUATE STUDENT INSTRUCTOR.
--- NOTE | 2018-10-28 18:42 | NUR ---
END OF SHIFT. PT REPORTING HEADACHE, MEDS GIVEN ORDERED. NO OTHER CHANGE IN STATUS.
--- NOTE | 2018-10-28 19:32 | NUR ---
REPORT GIVEN TO S.S. NURSE AT 19:25.
[2018-10-28 19:44] VITALS: BP 120/58
--- NOTE | 2018-10-29 04:20 | NUR ---
ARRIVED ON UNIT AT 1999 VIA W/C ACCOMPANIED BY 3W STAFF. PATIENT ALERT AND ORIENTED X4 WITH SOME FORGETFULNESS. ACCUCHECK WAS 154 AND RECIEVED 3UNIT LISPRO INSULIN. C/O PAIN X1, MED GIVEN. O2 AT 2L IN DAY AND C-PAP AT HS WITH CONTINOUS PULSE OX. UP BY SELF OTHER THAN TO UNHOOK PULSE OX. SLEPT MOST OF NIGHT.
[2018-10-29 07:58] VITALS: BP 139/81
--- NOTE | 2018-10-29 11:01 | NUR ---
ASSUMED CARE THIS AM, SHIFT ASSESSMENT DONE, MEDS GIVEN, VSS. FSBS THIS AM WAS 229, 4 UNITS GIVEN. REMAINS ON 2L NC. DENIES ANY PAIN. CPAP USE AT NIGHT TIME. WILL CONTINUE TO ASSESS AND ASSIST WITH ADLs NEEDED.
[2018-10-29 11:54] VITALS: BP 139/81
[2018-10-29] MEDS ORDERED: K-DUR 20 MEQ T20 MEQ PO (12:01)
[2018-10-29] MEDS ORDERED: ACETAMINOPHEN325 M1 PO (12:01)
[2018-10-29] MEDS ORDERED: LEVAQUIN 500 M500 M1 PO (12:01)
[2018-10-29] MEDS ORDERED: PREDNISONE 20 M20 M1 PO (12:01)
[2018-10-29] MEDS ORDERED: MUCINEX600 MG PO (12:01)
[2018-10-29] MEDS ORDERED: LASIX 40 MG TAB40 M1 PO (12:01)
[2018-10-29] MEDS ORDERED: DEEP SEA NASAL44 M1 NASAL (12:01)
[2018-10-29] MEDS ORDERED: CARDIZEM CD 18180 M3 PO (12:01)
[2018-10-29] MEDS ORDERED: IPRAT-ALBUT 0.5-3 ML INH (12:01)
--- NOTE | 2018-10-29 12:04 | NUR ---
Following for d/c planning needs. Pt will need 4 wheeled walker for home use. Contacted [facility]. Notified [facility] of d/c and they are able to accept. Will await return call from [facility] re: delivery of walker.
[2018-10-29 15:06] VITALS: BP 139/81
--- NOTE | 2018-10-29 17:53 | NUR ---
DISCHARGE ORDERS RECEIVED. IV TAKEN OUT. PATIENT RECEIVED 4 WHEEL WALKER. SCRIPTS GIVEN. PATIENT WAS TRANSPORTED OUT WITH [facility].
--- NOTE | 2018-10-30 12:43 | HC ---
[facility] [place] [address] CONSULTATION Name: CLAUDIA EVANS Room #: [address] [place] [address] IN M.Ace.#: [id number] Admission: 10/26/18 Attend Phys: Maximino Garcia MD Discharge: 10/29/18 Date of : 52 Report #: [id number] THIS REPORT FOR: //name// CC: Maximino Valencia INPATIENT CONSULTATION PRIMARY CARE DOCTOR: Dai Valencia M.D. CHIEF COMPLAINT: Shortness of breath. HISTORY OF PRESENT ILLNESS: The patient is a 68-year-old female with a history of heart disease and prior aortic valve replacement, who presented to the Emergency Department with congestive heart failure symptoms, shortness of breath, weakness, fatigue, subjective fever and cough. She does use oxygen at home, but she has been more short of breath with activity. Her x-ray revealed congestive heart failure with bilateral infiltrates and she received IV Lasix in the Emergency Department and is feeling much better this morning. She was noted to be in atrial fibrillation with heart rates in the 90s-100s. She denies chest pain or pressure. She denies orthopnea, but has had some PND. She has a history of mitral valve replacement and is on warfarin and denies any noncompliance with it. She usually gets her labs at Dr. Valencia's office, but she does do home checks also, but lately her machine had not been functioning well. PAST MEDICAL HISTORY: In 2002, mitral valve replacement; history of normal LV systolic function, atrial fibrillation with a rate control strategy; hypertension, naf-xacqpkh-gqajpuitb diabetes; COPD and CHF. SOCIAL HISTORY: Tobacco use, is a former smoker, but it had only been a year since she quit. REVIEW OF SYSTEMS: GENERAL: No fevers. Positive chills. PULMONARY: Positive shortness of breath, positive cough. CARDIOVASCULAR: Positive shortness of breath. Positive palpitations. No chest discomfort. NEUROLOGIC: Denies headaches, blurry vision or slurred speech. SKIN: Denies any rashes, bruises or nonhealing ulcers. GASTROINTESTINAL: No nausea, vomiting, hematemesis or melena. PHYSICAL EXAMINATION: [facility] [address] [place] [address] CONSULTATION Name: CLAUDIA EVANS Room #: 225-P [facility] IN M.R.#: [id number] Admission: 10/26/18 Attend Phys: Maximino Garcia MD Discharge: 10/29/18 Date of : 52 Report #: [id number] VITAL SIGNS: Blood pressure is 114/69, pulse is 82, temperature is 36.4, respiratory rate 16 and O2 sats 94% on 2 liters. GENERAL: This is a pleasant -Serbian female. She is alert, in no apparent distress. NECK: Supple. No jugular venous distention. CARDIOVASCULAR EXAMINATION: Irregular. There is a mechanical heart sound. There is faint systolic murmur. LUNGS: Faint bibasilar rales. ABDOMEN: Nontender, nondistended. EXTREMITIES: There is no peripheral edema. SKIN: Warm and dry. LABORATORY DATA: Electrocardiogram shows atrial fibrillation with nonspecific T-wave abnormality. Hemoglobin is 12.9, white blood cell count is 5.9. Sodium is 141, potassium is 4.6, chloride is 101, CO2 is 31, BUN is 13 and creatinine is 1.0. Troponin I is 0.06 x 1 set. BNP is 240. Chest x-ray shows cardiomegaly with bilateral infiltrates. IMPRESSION: 1. [place]su-za-[place] diastolic congestive heart failure. 2. Atrial fibrillation with elevated heart rates. 3. Status post mitral valve replacement. 4. Hypertension. 5. Chronic obstructive pulmonary disease. PLAN: At this point in time, I would continue with aggressive pulmonary toilet, diuretics. I will start her on Cardizem for a better rate control of her atrial fibrillation. We will assess function of her left ventricle and mitral valve prosthetic. She has been on oral Lasix, but this dose may need to be increased to 60 mg on discharge. <ELECTRONICALLY SIGNED> By: Rob Gregory MD, FACC 10/30/18 1243 [id number] [id number] Rob Gregory MD, FACC /nt
== END 2018-10-29 17:54 | disposition home health service (06) | DRG 871 ==
LOC: ER 18:44 → EROBS 22:24 → 3W 22:24 → SICU 10-28 20:04 → ENTRNSPT 10-29 17:05 → SICU 10-29 17:54
PROVIDERS: Nurse Practitioner Family; Physician Assistant; ADMIT Internal Medicine
PROC: 5A09357 Assistance with Respiratory Ventilation, Less than 24 Consecutive Hours, Continuous Positive Airway Pressure (ICD-10-PCS; principal; 2018-10-28)
DX: A41.9 Sepsis, unspecified organism (principal); J96.01 Acute respiratory failure with hypoxia; I50.33 Acute on chronic diastolic (congestive) heart failure; J44.1 Chronic obstructive pulmonary disease with (acute) exacerbation; I69.354 Hemiplegia and hemiparesis following cerebral infarction affecting left non-dominant side; I11.0 Hypertensive heart disease with heart failure; J20.9 Acute bronchitis, unspecified; E11.9 Type 2 diabetes mellitus without complications; K21.9 Gastro-esophageal reflux disease without esophagitis; E03.9 Hypothyroidism, unspecified; E78.00 Pure hypercholesterolemia, unspecified; K08.409 Partial loss of teeth, unspecified cause, unspecified class; G47.33 Obstructive sleep apnea (adult) (pediatric); I25.10 Atherosclerotic heart disease of native coronary artery without angina pectoris; I48.2 Chronic atrial fibrillation; Z79.899 Other long term (current) drug therapy; Z87.891 Personal history of nicotine dependence; Z95.2 Presence of prosthetic heart valve; Z23 Encounter for immunization
CPT/HCPCS: 10879; 15002

== ENCOUNTER → 2019-02-09 | Outpatient (CLI) | payer OTHER ==
[~2019-02-09] MED LIST changes: +ACETAMINOPHEN325 M1 PO; +CARDIZEM CD 18180 M3 PO; +DEEP SEA NASAL44 M1 NASAL; +IPRAT-ALBUT 0.5-3 ML INH; +K-DUR 20 MEQ T20 MEQ PO; +LASIX 40 MG TAB40 M1 PO; +LEVAQUIN 500 M500 M1 PO; +MUCINEX600 MG PO
== END ==
LOC: RAD 12:07
DX: J44.9 Chronic obstructive pulmonary disease, unspecified (principal); I77.810 Thoracic aortic ectasia; J98.11 Atelectasis; J18.9 Pneumonia, unspecified organism; I11.0 Hypertensive heart disease with heart failure; I50.9 Heart failure, unspecified; E11.9 Type 2 diabetes mellitus without complications; E78.5 Hyperlipidemia, unspecified; I48.91 Unspecified atrial fibrillation; K21.9 Gastro-esophageal reflux disease without esophagitis; Z79.01 Long term (current) use of anticoagulants; Z87.891 Personal history of nicotine dependence

== ENCOUNTER → 2021-02-27 | Outpatient (CLI) | payer OTHER | LOC: RAD 12:06 | PROVIDERS: ATTEND Internal Medicine Pulmonary Disease | DX: I27.0 Primary pulmonary hypertension (principal); J98.4 Other disorders of lung ==

== ENCOUNTER → 2021-04-03 | Outpatient (CLI) | payer OTHER ==
--- NOTE | 2021-04-03 13:54 | 2DMMODE ---
[facility] [place] [address] 2 D/M-MODE ECHOCARDIOGRAM Name: CLAUDIA EVANS Room #: REG LORELEI ..#: [id number] Admission: 04/03/21 Attend Phys: Eric Mast MD Discharge: Date of : 52 Report #: [id number] THIS REPORT FOR: cc: Dai Valencia MD, Sequita MD Lammoglia, Francisco J. MD ~ APPROVED REPORT Study performed: 04/03/2021 12:06:53 EXAM: Comprehensive 2D, Doppler, and color-flow Echocardiogram Patient Location: Out-Patient Status: routine BSA: 1.83 HR: 62 bpm BP: 130/64 mmHg Rhythm: Atrial Fibrillation Other Information Study Quality: Fair Technically limited study due to unable to position, sitting up in bed, COPD. Indications Dyspnea Hx: Mitral valve replacement. Afib, HTN, DM, COPD. 2D Dimensions IVSd: 9.59 (7-11mm) LVOT Diam: 22.12 (18-24mm) LVDd: 51.75 mm PWd: 10.23 (7-11mm) Ascending Ao: 31.09 (22-36mm) LVDs: 35.13 (25-40mm) Left Atrium: 47.20 (27-40mm) Aortic Root: 30.06 mm Aortic Valve AoV Peak Monster.: 1.50 m/s AO Peak Gr.: 8.94 mmHg LVOT Max P.61 mmHg LVOT Max V: 0.81 m/s NAZIA Vmax: 2.08 cm2 Mitral Valve MV Decel. Time: 292.48 ms [facility] [address] [place] [address] 2 D/M-MODE ECHOCARDIOGRAM Name: CLAUDIA EVANS Room #: REG [facility]#: [id number] Admission: 04/03/21 Attend Phys: Eric Mast MD Discharge: Date of : 52 Report #: [id number] MV PHT: 82.25 ms MVA (PHT): 2.67 cm2 Pulmonary Valve PV Peak Monster.: 0.93 m/s PV Peak Gr.: 3.46 mmHg Tricuspid Valve TR Peak Monster.: 2.57 m/s RAP Estimate: 5.00 mmHg TR Peak Gr.: 26.43 mmHg PA Pressure: 31.00 mmHg Left Ventricle The left ventricle is normal size. There is normal LV segmental wall motion. There is normal left ventricular wall thickness. Left ventricular systolic function is normal. LVEF is 60%. This study is not technically sufficient to allow evaluation of the LV diastolic function due to atrial fibrillation. Right Ventricle Right ventricle is not well visualized but appears dilated. Atria Biatrial appear dilatation Aortic Valve Aortic valve is trileaflet; mildly calcified. Mild aortic regurgitation. There is no aortic valvular stenosis. Mitral Valve History of mitral valve replacement in 2002. Peak gradient of 12mmHg; mean of 6mmHg. There is no mitral valve regurgitation noted. Tricuspid Valve The tricuspid valve is normal in structure. Moderate tricuspid regurgitation. Estimated PAP is 30-35mmHg. Pulmonic Valve Pulmonic valve is not well visualized. Mild pulmonic regurgitation. Great Vessels The aortic root is normal in size. The ascending aorta is normal in size. IVC is normal in size and collapses >50% with inspiration. Pulmonary artery appears severely dilated (5.3cm). [facility] [address] [place] [address] 2 D/M-MODE ECHOCARDIOGRAM Name: CLAUDIA EVANS Room #: REG [facility]..#: [id number] Admission: 04/03/21 Attend Phys: Eric Mast MD Discharge: Date of : 52 Report #: [id number] Pericardium There is no pericardial effusion. <Conclusion> The left ventricle is normal size. The left ventricle is normal size. Left ventricular systolic function is normal. LVEF is 60%. Right ventricle is not well visualized but appears dilated. Biatrial appear dilatation Aortic valve is trileaflet; mildly calcified. Mild aortic regurgitation. History of mitral valve replacement in 2002. Peak gradient of 12mmHg; mean of 6mmHg. There is no mitral valve regurgitation noted. The tricuspid valve is normal in structure. Moderate tricuspid regurgitation. Estimated PAP is 30-35mmHg. Pulmonic valve is not well visualized. The aortic root is normal in size. There is no pericardial effusion. Pulmonary artery appears severely dilated (5.3cm). <ELECTRONICALLY SIGNED> By: Dmitry Ramirez MD 04/03/21 1353 135 135 Dmitry Ramirez MD /INF
== END ==
LOC: CV 03-08 08:32
PROVIDERS: ATTEND Internal Medicine Pulmonary Disease
DX: I08.8 Other rheumatic multiple valve diseases (principal); I11.0 Hypertensive heart disease with heart failure; R06.02 Shortness of breath; I50.32 Chronic diastolic (congestive) heart failure; I48.0 Paroxysmal atrial fibrillation; E11.9 Type 2 diabetes mellitus without complications; J44.9 Chronic obstructive pulmonary disease, unspecified; R94.2 Abnormal results of pulmonary function studies; K21.9 Gastro-esophageal reflux disease without esophagitis; Z95.2 Presence of prosthetic heart valve; Z99.89 Dependence on other enabling machines and devices

== ENCOUNTER → 2021-05-08 | Outpatient (CLI) | payer OTHER ==
[~2021-05-08] MED LIST changes: +WARFARIN SODIUM5 MG PO
--- NOTE | 2021-05-16 09:47 | SLE ---
[facility] [place] [address] POLYSOMNOGRAPHY STUDY Name: CLAUDIA EVANS Room #: REG LORELEI [facility].#: [id number] Admission: 05/08/21 Attend Phys: Piotr Briggs MD Discharge: Date of : 52 Report #: [id number] THIS REPORT FOR: cc: Dai Valencia MD,Dai Briggs,Piotr Calderón MD ~ cc: Eric Mast MD DATE OF SERVICE: 05/08/2021 SLEEP STUDY ATTENDING PHYSICIAN: Dr. Eric Mast. The patient is a 70-year-old who weighs 170 pounds with a BMI of 29.2. The patient's [place] score was 10. The patient has a history of sleep apnea for which the patient has been on CPAP. A recent nocturnal oximetry study revealed desaturations while on CPAP. As a result, the patient's calibration checker ordered a BiPAP titration study. During the night study, the patient spent 517 minutes in bed and slept for 426 minutes with a sleep efficiency of 82%. Sleep latency was 0.3 minutes with a REM latency of 127 minutes. Sleep architecture showed normal stage I sleep, increased stage II sleep, normal slow wave and reduced REM sleep. EKG monitoring revealed an average heart rate of 54 beats per minute.Atrialfibrillation with PVC's No sustained arrhythmias observed. PLMS were seen at an index of 2.4 per hour and 0.7 per hour caused EEG arousals. The patient was started on BiPAP at a pressure of 8/4 and titrated up to 12/8. At the final pressure, the patient slept for 167 minutes. The patient had lateral REM sleep. The patient's AHI was reduced to 1.1 per hour and oxygen saturations remained above 90%. IMPRESSION: 1. Sleep apnea diagnosed by previous sleep study. 2. No clinically significant periodic limb movements of sleep. 3. Abnormal EKG with A-fib/ PVC RECOMMENDATIONS: 1. BiPAP at a pressure of 12/8, completely eliminated the patient's sleep apnea, should be used on a nightly basis. The patient's oxygen saturations remain above 90% at the final pressure. 2. Follow up in 4-6 weeks to assess compliance and to document clinical [address] [address] POLYSOMNOGRAPHY STUDY Name: CLAUDIA EVANS Room #: REG [facility].#: [id number] Admission: 05/08/21 Attend Phys: Piotr Briggs MD Discharge: Date of : 52 Report #: [id number] improvement. 3. Weight loss to the ideal body weight is recommended. 4. Avoid [employer] depressants. 5. Cautioned regarding driving until symptoms of sleep apnea resolve with the use of BiPAP. 6. Follow up with cardiology if clincally indicated. <ELECTRONICALLY SIGNED> By: Piotr Briggs MD 05/16/21 0947 2047 57 Piotr Briggs MD /mil
== END ==
LOC: SLEEPLAB 10:08
PROVIDERS: ATTEND Internal Medicine Critical Care Medicine
DX: G47.34 Idiopathic sleep related nonobstructive alveolar hypoventilation (principal); G47.33 Obstructive sleep apnea (adult) (pediatric); R06.02 Shortness of breath; K21.9 Gastro-esophageal reflux disease without esophagitis; Z95.2 Presence of prosthetic heart valve; I50.32 Chronic diastolic (congestive) heart failure; I48.0 Paroxysmal atrial fibrillation

== ENCOUNTER 2021-05-23 18:53 | Inpatient (IN) | payer OTHER ==
[~2021-05-23] VITALS: Ht 165.1 cm; Wt 73.5 kg
--- NOTE | ~2021-05-23 | EMS ---
[address] [address] EMS Patient Care Report Name: CLAUDIA EVANS Room #: REG BOGDAN Ramos#: [id number] Admission: 05/23/21 Attend Phys: Discharge: Date of : 52 Report #: [id number] THIS REPORT FOR: //name// Report Transmitted: 05/23/2021 18:46 EMS Care Summary [place], [place]/[facility] Incident [id number] @ 05/23/2021 17:57 Incident Location [address] [place] [address] Patient CLAUDIA EVANS Female, 70 Years 1950 Patient Address [address] [place] [address] Patient History Chronic Obstructive Pulmonary Disease (COPD), Patient Allergies No known allergies, Chief Complaint WEAKNESS AND DROWSINESS Disposition Transported No Lights/[place] Dispatch Reason Breathing Problem Transported To [facility] Narrative DISPATCHED TO A SHORT OF BREATH. ARRIVED ON SCENE TO FIND FIRE CREW ASSESSING FEMALE PATIENT SEATED IN A CHAIR IN THE FRONT BEDROOM AND OBTAINING VITALS. FIRE CREW SAID THAT SHE IS COMPLAINING OF GENERALIZED WEAKNESS AND DROWSINESS FOR ABOUT TWO DAYS. PATIENT SAID SHE ALSO HAS A HEADACHE AND BACK ACHE. SHE SAID THAT HER FAMILY MEMBER THAT LIVES WITH HER JUST GOT OVER COVID AND SHE TOOK A TEST YESTERDAY BUT HAS NOT YET RECEIVED RESULTS. FIRE CREW SAID ON THEIR [address] [address] EMS Patient Care Report Name: CLAUDIA EVANS Room #: REG [facility]#: [id number] Admission: 05/23/21 Attend Phys: Discharge: Date of : 52 Report #: [id number] ARRIVAL PATIENT'S O2 SAT WAS 92 ON ROOM AIR AND SHE SAID SHE IS TO USE HOME OXYGEN NEEDED. SHE WAS PLACED ON A NASAL CANNULA AT THIS TIME. PATIENT WAS ASSISTED IN STANDING AND SITTING ON A STAIR CHAIR, SECURED WITH STRAPS, AND MOVED TO THE FRONT OF THE HOUSE WHERE SHE WAS ASSISTED IN STANDING AND SITTING ON THE COT, SECURED WITH STRAPS, AND MOVED TO THE AMBULANCE. PATIENT'S VITALS WERE REOBTAINED AND SHE WAS PLACED ON A 3 LEAD. IV WAS STARTED AND PATIENT WAS TRANSPORTED TO THE HOSPITAL WITH VITALS AND INTERVENTIONS MONITORED. UPON ARRIVAL AT THE HOSPITAL SHE WAS MOVED INTO ED ROOM 6 ON THE COT AND LIFTED TO THE HOSPITAL BED. PATIENT CARE WAS TURNED OVER TO ED NURSING STAFF. Initial Vitals @18:33P: 99,BP: 101/61,CO: 3,SpO2: 99, @18:23P: 75,BP: 105/53,CO: 4,SpO2: 95, @18:28P: 70,BP: 97/59,SpO2: 99, @18:20P: 58,BP: 97/53,SpO2: 93, @18:19P: 58,R: 16,BP: 89/56,Pain: 4/10,GCS: 15,Glucose: 111,CO: 8,SpO2: 94,Revised Trauma: 11,OK Suspected: false @18:41P: 60,R: 16,BP: 94/54,Pain: 4/10,GCS: 15,SpO2: 99,Revised Trauma: 12, Assessments @18:07MENTAL:Place Oriented,Person Oriented,Event Oriented,Time Oriented,SKIN:HEENT:Head/Face: No Abnormalities,Neck/Airway: No Abnormalities,LUNG SOUNDS:General: No Abnormalities,Left Upper: No Abnormalities,Right Upper: No Abnormalities,Left Lower: No Abnormalities,Right Lower: No Abnormalities,ABDOMEN:General: No Abnormalities,Left Upper: No Abnormalities,Right Upper: No Abnormalities,Left Lower: No Abnormalities,Right Lower: No Abnormalities,PELVIS//GI:No Abnormalities,EXTREMITIES:Left Arm: Weakness,Right Arm: Weakness,Right Leg: Weakness,Left Leg: Weakness,Capillary Refill: Right Upper: < 2 Sec,PULSE:Radial: 2+ Normal,NEURO:No Abnormalities, Impression Generalized Weakness Procedures @18:07ALS AssessmentResponse: UnchangedSucceeded@18:193-Lead ECGResponse: UnchangedSucceeded@18:17Normal Saline (.9% NaCl) 10cc (20 ga) Site: Antecubital-LeftResponse: UnchangedSucceeded@PTAOxygen FlowRate: 4 Device: Nasal Cannula (NC) Response: UnchangedSucceeded Timeline SENIOR IT ARCHITECT,Oxygen FlowRate: 4 Device: Nasal Cannula (NC) Response: UnchangedSucceeded, 17:55,Call Received 17:55,Dispatch Notified 17:57,Dispatched 17:57,En Route 18:06,On Scene [address] [address] EMS Patient Care Report Name: CLAUDIA EVANS Room #: REG BOGDAN Ramos#: [id number] Admission: 05/23/21 Attend Phys: Discharge: Date of : 52 Report #: [id number] 18:07,At Patient 18:07,ALS Assessment,Response: UnchangedSucceeded, 18:17,Normal Saline (.9% NaCl) 10cc 20 ga Site: Antecubital-Left,Response: UnchangedSucceeded, 18:19,3-Lead ECG,Response: UnchangedSucceeded, 18:19,BP: 89/56 M,PULSE: 58,RR: 16 R,SPO2: 94 Ox,ETCO2: ,B,PAIN: 4,GCS: 15, 18:20,BP: 97/53 M,PULSE: 58,RR: R,SPO2: 93 Ox,ETCO2: ,BG: ,PAIN: ,GCS: , 18:23,BP: 105/53 M,PULSE: 75,RR: R,SPO2: 95 Ox,ETCO2: ,BG: ,PAIN: ,GCS: , 18:28,BP: 97/59 M,PULSE: 70,RR: R,SPO2: 99 Ox,ETCO2: ,BG: ,PAIN: ,GCS: , 18:29,Depart Scene 18:33,BP: 101/61 M,PULSE: 99,RR: R,SPO2: 99 Ox,ETCO2: ,BG: ,PAIN: ,GCS: , 18:41,BP: 94/54 M,PULSE: 60,RR: 16 R,SPO2: 99 Ox,ETCO2: ,BG: ,PAIN: 4,GCS: 15, 18:45,At Destination 18:59,Call Closed Disclaimer v1.1 Copyright 2020 [employer] This EMS Care Summary contains data elements from the applicable legal record (which may be displayed differently). It is designed to provide pertinent information for the following purposes: continuity of care, clinical quality, and state data reporting. The complete legal record is available to ED staff and administrators of the receiving hospital in [employer]'s Patient Tracker. All data is provided "as is."
[2021-05-23 18:57] VITALS: BP 95/40
[2021-05-23 19:32] LABS: ABSOLUTE NEUTROPHILS 3.8 thou/uL (1.4-8.2); BASOPHILS 0.3 % (0.0-2.0); HEMATOCRIT 36.1 % (37.0-47.0); HEMOGLOBIN 11.7 gm/dL (12.0-15.0); LYMPHOCYTES 17.6 % (24.0-44.0); MCH 26.4 pg (26.0-34.0); MCHC 32.5 g/dL (28.0-37.0); MCV 81.1 fL (80.0-100.0); MONOCYTES 12.7 % (1.0-8.0); PLATELET COUNT 120 thou/uL (150-400); POLYS 69.4 % (36.0-66.0); RBC 4.45 mil/uL (4.20-5.00); RDW 15.8 % (10.5-14.5); WBC 5.5 thou/uL (4.0-11.0)
[2021-05-23 19:42] LABS: CALCIUM 8.5 mg/dL (8.5-10.1); CREATININE 2.3 mg/dL (0.6-1.0); POTASSIUM 4.5 mmol/L (3.5-5.1)
[2021-05-23 19:49] LABS: ALBUMIN 3.6 g/dL (3.4-5.0); TOTAL BILIRUBIN 0.5 mg/dL (0.2-1.0); TOTAL PROTEIN 6.6 g/dL (6.4-8.2)
[2021-05-23 21:40] VITALS: BP 113/55
[2021-05-23 21:52] VITALS: BP 113/52
[2021-05-23 22:40] VITALS: BP 93/48
--- NOTE | 2021-05-24 00:22 | NUR ---
LIVES AT HOME WITH SISTER AD BROTHER IN LAW. SHE IS COVID POSITIVE FROM THEM ACCORDING TO THE PATIENT. COMPLAINS OF HYDROCODONE AT TIME OF ADMISSION. HER BACK HAS BEEN HURTING HER. 05/29 PAIN. IV FLUIDS STARTED AND MEDICATION STARTED. INSTRUCTED T CALL FOR ASSIST OUT OF BED.
[2021-05-24 04:20] VITALS: BP 103/52
--- NOTE | 2021-05-24 07:18 | NUR ---
PROGRESS PT A/O X4, UP WITH SBA GAIT STEADY.IVF'S INFUSING ORDERED . PT REPORTS OF BACK PAIN TAKING HYDROCODONE PRN NEEDED. TELEMETRY INTACT READING AFIB/SR. ACCUCHECKS AND SSI CONTINUE. VOIDING SMALL AMOUNTS BUN AND CREATININE ELEVATED. DR. SKINNER AND DR. BATISTA CONSULTED. LAST BM 05/23 CONTINUE POC.
--- NOTE | 2021-05-24 07:31 | EKG ---
[address] [place] [address] ELECTROCARDIOGRAM REPORT Name: CLAUDIA EVANS Room #: 352-P ADM IN M.R.#: [id number] Admission: 05/23/21 Attend Phys: Jann Aggarwal MD Discharge: Date of : 52 Report #: [id number] [facility] ED Test Date: 2021-05-23 Test Time: 19:21:20 Pat Name: CLAUDIA EVANS Department: Room: 352 Gender: F Supervisor Bindery: jesika : 1950 Requested By: Stoney Malloy Order Number: [id number] MD: Ronni Jefferson Measurements Intervals [place] Rate: 60 P: [place]: QRS: 83 QRSD: 112 T: 58 QT: 391 QTc: 391 Interpretive Statements Atrial fibrillation Incomplete right bundle branch block Anteroseptal infarct, age indeterminate Compared to ECG 10/26/2018 19:34:47 Incomplete right bundle-branch block now present Myocardial infarct finding still present Electronically Signed On 05-24-2021 7:30:55 CDT by Ronni Jefferson [email or web address] <ELECTRONICALLY SIGNED> By: Ronni Jefferson MD, [facility] 05/24/21 0730 20 20 Ronni Jefferson MD, [facility] /EPI
[2021-05-24 07:33] VITALS: BP 92/45
[2021-05-24 09:25] LABS: PROTIME 23.7 Seconds (10.5-12.1)
[2021-05-24 09:26] LABS: INR 2.26
[2021-05-24 11:05] VITALS: BP 101/60
--- NOTE | 2021-05-24 11:12 | NUR ---
INITIAL ASSESSMENT: Received consult. AGAPITO reviewed chart and spoke with nursing and attending physician. Pt was admitted from home due to COVID pneumonia. Pt placed in Enhanced Isolation. Pt has not received COVID vaccine. Pt with hx COPD, CHF and HTN. Pt has been febrile and is on 3.5-4L of O2. Pt is on IV steroids. ID consulted. AGAPITO spoke with pt via phone. Introduced role of SW. Pt is alert/orientated and states she lives at home with her sister and niece. Prior to admission, pt was independent with ADLs. No use of DME for ambulation. Pt is normally on 2L O2 continuously. Home O2 provided by [facility]. Pt has used [facility] in the past. Pt's PCP is Dr. Dai Valencia. Pt states she would like to get a rollator walker if insurance will cover, as she is unable to ambulate long distances and needs to rest. SW discussed DME providers. No preference voiced. AGAPITO contacted [employer] liaison to see if pt's insurance would cover a rollator. AGAPITO spoke with pt's sister, Valarie, and niece, Deepali, via phone per pt's request. Update provided and contact info for SW and 3W nurses station provided. PT/OT to be ordered when pt is able to participate. AGAPITO is following to assist as needed with discharge planning.
--- NOTE | 2021-05-24 16:56 | NUR ---
PT RESTING COMFORTABLY ON 3L NC. PT AFEBRILE, ADEQUATE UOP, NO BM, POOR APPETITE. AFIB ON TELEMETRY. PT HAS EXTREME BRADYCARDIA, SEEN LOW 32, PT ASYMPTOMATIC, AND HOSPITALIST WAS MADE AWARE, NO NEW ORDERS GIVEN. PT HAS NA OF 130 AND PROVIDER DC'D NS AND HAS NOT REPLACED WITH ANY OTHER FLUIDS. PT AND FAMILY HAVE BEEN THOUROUGHLY UPDATED AND EDUCATED ON PT CONDITION AND POC. PT SLOWLY PROGRESSING TOWARDS POC.
[2021-05-24 19:43] VITALS: BP 128/59
--- NOTE | 2021-05-24 21:09 | NUR ---
SPOKE WITH YOSEF COLMENARES REGARDING PT'S CONCERN REGARDING COUMADIN DOSING, PHARMACY MANAGING SO I SPOKE TO ARLENE IN PHARMACY AND DOSAGE CORRECTED TO HOME REGIMEN. HEART RATE DROPPING INTO 30'S ALL DAY, PT REPORTED DIZZINESS AND HAS AN UNSTEADY GAIT. REQUESTED CARDIOLOGY CONSULT.
[2021-05-25] VITALS: BP 133/67
[2021-05-25 01:53] LABS: URINE BILIRUBIN NEGATIVE (Negative); URINE BLOOD 1+ (Negative); URINE CLARITY SL CLOUDY; URINE COLOR YELLOW; URINE GLUCOSE-RANDOM* TRACE (Negative); URINE KETONES NEGATIVE (Negative); URINE LEUKOCYTES-REFLEX NEGATIVE (Negative); URINE NITRITE-REFLEX NEGATIVE (Negative); URINE PROTEIN (DIPSTICK) 2+ (Negative); URINE SPECIFIC GRAVITY >= 1.030 (1.005-1.035); URINE UROBILINOGEN 0.2 E.U./dl (0.2-1.0)
[2021-05-25 02:05] LABS: BACTERIA-REFLEX 1-9 Few /HPF (None Seen); COARSE GRANULAR CASTS 4-10 Moderate /LPF (None Seen); CRYSTALS None Seen /LPF (None Seen); HYALINE CASTS 0-3 Few /LPF (None Seen); MUCUS 0-3 Light strn/LPF (None Seen); SQUAMOUS 4-10 Moderate /LPF (0-3); URINE RBC 3-10 Few /HPF (NONE SEEN); URINE WBC-REFLEX 6-15 Few /HPF (0-5)
[2021-05-25 02:46] VITALS: BP 133/64
[2021-05-25 02:51] VITALS: BP 133/647
[2021-05-25 03:12] LABS: HEMOGLOBIN 11.8 gm/dL (12.0-15.0); MCH 26.1 pg (26.0-34.0); MCHC 31.9 g/dL (28.0-37.0); MCV 81.9 fL (80.0-100.0); MONOCYTES 9.2 % (1.0-8.0); PLATELET COUNT 89 thou/uL (150-400); POLYS 72.8 % (36.0-66.0); RBC 4.52 mil/uL (4.20-5.00); RDW 16.1 % (10.5-14.5); WBC 4.2 thou/uL (4.0-11.0)
[2021-05-25 03:48] LABS: ALBUMIN 3.3 g/dL (3.4-5.0); CALCIUM 8.4 mg/dL (8.5-10.1); PHOSPHORUS 2.4 mg/dL (2.5-4.9); POTASSIUM 5.3 mmol/L (3.5-5.1); TOTAL BILIRUBIN 0.4 mg/dL (0.2-1.0); TOTAL PROTEIN 6.5 g/dL (6.4-8.2)
[2021-05-25 03:53] LABS: CREATININE 1.3 mg/dL (0.6-1.0)
[2021-05-25 03:56] LABS: INR 3.19; PROTIME 32.9 Seconds (10.5-12.1)
--- NOTE | 2021-05-25 05:09 | NUR ---
progress pt a/o x4 lungs diminished and coarse in upper [place]yola. non productive cough. vss, telemetry intact reading sb with rates down into the 30's reported to Linh Anderson and cardiology consulted message left with answering service. started remsdesivir.
[2021-05-25 07:24] VITALS: BP 138/68
[2021-05-25] MEDS ORDERED: WARFARIN SODIUM5 MG PO (08:24)
--- NOTE | 2021-05-25 14:09 | NUR ---
SW reviewed chart and spoke with nursing and attending physician. Pt remains in Enhanced Isolation due to COVID. Pt is afebrile and on 3L of O2. Pt is on IV steroids and Remdesivir. Pt is normally on 2L of O2 at home through [facility]. Weekend discharge not anticipated. SW requested PT/OT evals to be ordered for recommendation for discharge needs. SW is following to assist as needed with discharge planning.
--- NOTE | 2021-05-25 14:22 | NUR ---
PT RESTING COMFORTABLY. PT AFEBRILE, ADEQUATE UOP, BM X1, APPROPRIATE APPETITE. PT'S BLOOD SUGARS NOT UNDER CONTROL. PT HAS EXTREME BRADYCARDIA WITH A-FIB ON TELEMETRY, PT ASYMPTOMATIC AND PROVIDERS ARE AWARE. PT AND FAMITY HAVE JAVIER THOUROGHLY UPDATED AND EDUCATED ON PT CONDITION AND POC. PT SLOWLY PROGRESSING TOWARDS POC.
[2021-05-25 15:25] VITALS: BP 128/76
[2021-05-25 19:30] VITALS: BP 132/56
[2021-05-26 02:06] LABS: HIV ANTIBODY Non Reactive (Non Reactive)
[2021-05-26 03:30] VITALS: BP 115/67
--- NOTE | 2021-05-26 04:40 | NUR ---
PROGRESS PT A/O X4, LUNGS COARSE IN UPPER DURAN AND DIMINISHED IN BASES, DRY INFREQUENT COUGH. VOIDING QS, ACCUCHECKS AND SSI CONTINUE. SSI INCREASED TO NEXT LEVEL TODAY BETTER CONTROL NOTED. PT CONTINUES TO REMOVE O2 SATS DROP TO MID 80'S ON ROOM AIR. SATS STAY AT 98% WITH 3 LITERS. TELEMETRY INTACT READING AFIB WITH RATES IN TO 40'S TO 50'S, OCCASIONALLY WILL DIP DOWN INTO THE 30'S. PT REQUESTED MANY SNACKS LAST NIGHT AND THEN REPORTED CHEST PAIN AT 330 VSS SEE FLOWSHEET, HAD HER 3 LITERS OF O2 OFF SATS AT 88% REAPPLIED AND SATS AT 99%. SKIN WARM AND DRY, RESPIRATIONS AT 20 BUT QUIET AND EASY. EKG AT BEDSIDE NOTED AFIB WITH A RATE OF 55. PT REQUESTED TO WALK IN THE VARGAS TO RELIEVE CHEST PAIN AND THEN STATED IT WAS NOT HEART PAIN IT WAS HEART BURN. PROTONIX GIVEN EARLY. PT HOPES TO DISCHARGE TODAY BUT REMDESIVIR JUST INITIATED 05/25. CONTINUE TO MONITOR PATIENT. PERFORMED AT BEDSIDE AFIB WITH A RATE OF 55 NOTED. AVA NAVAS NOTIFIED NO NEW ORDERS.
[2021-05-26 05:50] LABS: HEMATOCRIT 39.2 % (37.0-47.0); HEMOGLOBIN 12.6 gm/dL (12.0-15.0); MCH 26.4 pg (26.0-34.0); MCHC 32.2 g/dL (28.0-37.0); MCV 81.9 fL (80.0-100.0); RBC 4.78 mil/uL (4.20-5.00); RDW 16.1 % (10.5-14.5); WBC 5.5 thou/uL (4.0-11.0)
[2021-05-26 06:02] LABS: INR 3.69; PROTIME 37.8 Seconds (10.5-12.1)
[2021-05-26 06:08] LABS: ALBUMIN 3.6 g/dL (3.4-5.0); CREATININE 1.2 mg/dL (0.6-1.0); PHOSPHORUS 2.4 mg/dL (2.5-4.9); POTASSIUM 4.9 mmol/L (3.5-5.1)
[2021-05-26 07:25] VITALS: BP 121/59
[2021-05-26 11:02] VITALS: BP 132/66
--- NOTE | 2021-05-26 12:23 | EKG ---
[address] [place] [address] ELECTROCARDIOGRAM REPORT Name: CLAUDIA EVANS Room #: 352- ADM IN M.R.#: [id number] Admission: 05/23/21 Attend Phys: Miguel Bond Discharge: Date of : 52 Report #: [id number] [facility] Test Date: 2021-05-26 Test Time: 03:18:32 Pat Name: CLAUDIA EVANS Department: Room: [facility] Gender: F Crew Scheduler: UNKNOWN : 1950 Requested By: Miguel Bond Order Number: [id number] MD: Daniel Houston Measurements Intervals [place] Rate: 55 P: NM: QRS: 60 QRSD: 113 T: 70 QT: 435 QTc: 416 Interpretive Statements Atrial fibrillation Incomplete right bundle branch block Borderline low voltage, extremity leads Baseline wander in lead(s) V6 Compared to ECG 05/23/2021 19:21:20 Myocardial infarct finding no longer present Electronically Signed On 05-26-2021 12:23:30 CDT by Daniel Houston [email or web address] <ELECTRONICALLY SIGNED> By: Daniel Houston MD 05/26/21 1223 0318 Daniel Houston MD /TOSHA
[2021-05-26 15:39] VITALS: BP 136/64
--- NOTE | 2021-05-26 18:41 | NUR ---
PT HR STILL IN THE 40-60'S. PT IN [facility] SPIRITS TODAY, ASKING ID WHEN CAN SHE GO HOME, SHE STATES "IM READY TO GO HOME." BLOOD SUGARS STILL IN THE LOW 200'S. PT CAN USE THE CALL LIGHT WHEN NEEDING ITEMS. UP TO BATHROOM.
[2021-05-26 20:31] VITALS: BP 153/72
--- NOTE | 2021-05-26 23:17 | NUR ---
PT ALERT AND ORIENTED X4. VSS AFEBRILE UNLABORED ON 3LNC. NO C/O PAIN. NO S/S DISTRESS PRESENTLY. BED DOWN CALL LIGHT IN REACH. INSTRUCTED TO CALL NS FOR HELP IF SHE NEEDED TO GET OOB. WILL CONTINUE TO MONITOR PT FOR CHANGES.
[2021-05-27 03:17] VITALS: BP 128/68
[2021-05-27 06:31] LABS: INR 2.36; PROTIME 24.7 Seconds (10.5-12.1)
[2021-05-27 06:39] LABS: ALBUMIN 3.4 g/dL (3.4-5.0); DIRECT BILIRUBIN 0.2 mg/dL (<0.1-0.2); POTASSIUM 3.8 mmol/L (3.5-5.1); TOTAL BILIRUBIN 0.7 mg/dL (0.2-1.0); TOTAL PROTEIN 6.5 g/dL (6.4-8.2)
--- NOTE | 2021-05-27 07:00 | NUR ---
PT PROGRESSING TOWARDS D\C GOALS. VSS AFEBRILE. RESPIRATIONS UNLABORED. NO S/S DITRESS.
[2021-05-27 07:45] VITALS: BP 99/58
[2021-05-27 09:24] LABS: URINE BILIRUBIN NEGATIVE (Negative); URINE BLOOD TRACE (Negative); URINE CLARITY CLEAR; URINE COLOR YELLOW; URINE GLUCOSE-RANDOM* NEGATIVE (Negative); URINE KETONES NEGATIVE (Negative); URINE LEUKOCYTES-REFLEX NEGATIVE (Negative); URINE NITRITE-REFLEX NEGATIVE (Negative); URINE PROTEIN (DIPSTICK) NEGATIVE (Negative); URINE UROBILINOGEN 0.2 E.U./dl (0.2-1.0)
[2021-05-27 11:37] VITALS: BP 117/72
[2021-05-27 12:34] VITALS: BP 117/72
--- NOTE | 2021-05-27 13:26 | NUR ---
ASSUMED PATIENT CARE AT 0700. A/O X4. TITRATED TO RA TOLERATED WELL. PATIENT HAD HH SERVICE FEW YEARS AGO. AGAPITO CONSULTED TO F/U HH. DC TO HOME NOW.
--- NOTE | 2021-05-28 13:23 | NUR ---
Notified that patient was discharged to home with Home Health on 05-27-21 but patient did not remember which home health she had in the past. On 05-28-21 I spoke with patient's sister Valarie Roland who lives with the patient and asked if she or her sister had a choice in a home health agency as the nurse had indicated that patient stated she had Home Health in the past and could not remember the name and when CM followed on Friday she would let us know her choice. Valarie too said they could not remember the company name and had no preference, but would certainly like for this service. Reached out to [facility] and they were able to accept the patient to their service and their start date will be on 06-29-21. Called sister Valarie back and she said "oh thank you so much for all your help". Confirmed with Lauren at [facility] that the patient and family were receptive and Lauren was going to call them next to set up a time that would work for the patient.
== END 2021-05-27 14:01 | disposition home health service (06) | DRG 177 ==
LOC: ER 18:53 → EROBS 21:08 → 3W 21:08
PROVIDERS: Emergency Medicine; Hospitalist; Nurse Practitioner Family; Specialist; ADMIT Hospitalist; ATTEND Hospitalist
PROC: XW033E5 Introduction of Remdesivir Anti-infective into Peripheral Vein, Percutaneous Approach, New Technology Group 5 (ICD-10-PCS; principal; 2021-05-24)
PROC: XW033H5 Introduction of Tocilizumab into Peripheral Vein, Percutaneous Approach, New Technology Group 5 (ICD-10-PCS; 2021-05-25)
DX: U07.1 COVID-19 (principal); J12.82 Pneumonia due to coronavirus disease 2019; J96.21 Acute and chronic respiratory failure with hypoxia; N17.9 Acute kidney failure, unspecified; I48.21 Permanent atrial fibrillation; I42.9 Cardiomyopathy, unspecified; J44.9 Chronic obstructive pulmonary disease, unspecified; I11.0 Hypertensive heart disease with heart failure; E03.9 Hypothyroidism, unspecified; I50.9 Heart failure, unspecified; E11.9 Type 2 diabetes mellitus without complications; K21.9 Gastro-esophageal reflux disease without esophagitis; E78.00 Pure hypercholesterolemia, unspecified; E78.5 Hyperlipidemia, unspecified; I95.9 Hypotension, unspecified; G47.33 Obstructive sleep apnea (adult) (pediatric); I49.5 Sick sinus syndrome; I05.9 Rheumatic mitral valve disease, unspecified; E66.9 Obesity, unspecified; D69.6 Thrombocytopenia, unspecified; Z79.84 Long term (current) use of oral hypoglycemic drugs; Z79.899 Other long term (current) drug therapy; Z86.73 Personal history of transient ischemic attack (TIA), and cerebral infarction without residual deficits; Z79.82 Long term (current) use of aspirin; Z87.891 Personal history of nicotine dependence; Z95.4 Presence of other heart-valve replacement; Z83.3 Family history of diabetes mellitus; Z82.49 Family history of ischemic heart disease and other diseases of the circulatory system; Z68.27 Body mass index [BMI] 27.0-27.9, adult
CPT/HCPCS: 10879

== ENCOUNTER 2021-06-12 13:24 | Inpatient (IN) | payer OTHER ==
[~2021-06-12] VITALS: Ht 160 cm; Wt 72.6 kg
--- NOTE | ~2021-06-12 | EMS ---
[address] [address] EMS Patient Care Report Name: CALUDIA EVANS Room #: 216-P [facility] IN M.R.#: [id number] Admission: 06/12/21 Attend Phys: Piyush Mak MD Discharge: 06/14/21 Date of : 52 Report #: [id number] THIS REPORT FOR: //name// Report Transmitted: 06/15/2021 10:29 EMS Care Summary [place], [place]/[facility] Incident [id number] @ 06/12/2021 12:44 Incident Location [address] [place] [address] Patient CLAUDIA EVANS Female, 70 Years 1950 Patient Address [address] [place] [address] Patient History Chronic Obstructive Pulmonary Disease (COPD),Atrial Fibrillation, Patient Allergies No known allergies, Patient Medications Unknown, Chief Complaint R arm and R leg swelling Disposition Transported No Lights/[place] Reason No Other Appropriate Choice Transported To [facility] Narrative 70 y/o female with arm/leg swelling Upon arrival P42 was on scene. I received report from fire personnel on scene. The pt is just inside the front door. She is apparently having R arm and R [address] [address] EMS Patient Care Report Name: CLAUDIA EVANS Room #: 216-P [facility] IN Rachel#: [id number] Admission: 06/12/21 Attend Phys: Piyush Mak MD Discharge: 06/14/21 Date of : 52 Report #: [id number] leg swelling that has been going on for the last 2 days. Upon examination the pt is awake, conscious A&O x 4 with a GCS of 15. She has a patent airway, breathing is normal, and has a strong reg radial pulse. The pt ambulated to the cot, placed herself on the cot in a position of comfort, secured to the cot, and loaded into the ambulance. VS were taken, ECG is A-fib. The pt has edema in R and L extremity. Pt states that the swelling is painful. The pt rates her pain an 8/10. The pt was transported to [place] per the family and pt request with out incident or changes with the pt during transport. Upon arrival the pt had to urinate due to her Lasix intake prior to our arrival. Initial Vitals @13:02P: 64,BP: 176/76,CO: 5,SpO2: 96, @13:06P: 69,BP: 146/85,CO: 5,SpO2: 95, @13:04P: 68,R: 12,Pain: 8/10,GCS: 15,CO: 4,SpO2: 92, Assessments @13:09MENTAL:Person Oriented,Time Oriented,Event Oriented,Place Oriented,SKIN:HEENT:Head/Face: No Abnormalities,Neck/Airway: No Abnormalities,LUNG SOUNDS:General: No Abnormalities,ABDOMEN:General: No Abnormalities,PELVIS//GI:No Abnormalities,EXTREMITIES:Right Leg: Edema,Right Arm: Edema,Capillary Refill: Right Upper: < 2 Sec,Capillary Refill: Left Upper: < 2 Sec,Left Arm: No Abnormalities,Left Leg: No Abnormalities,PULSE:Radial: 2+ Normal,NEURO:No Abnormalities, Impression Cardiac arrhythmia/dysrhythmia Procedures @13:08ALS AssessmentResponse: UnchangedSucceeded@13:093-Lead ECGResponse: UnchangedSucceeded Timeline 12:32,Call Received 12:32,Dispatch Notified 12:44,Dispatched 12:45,En Route 12:57,On Scene 12:58,At Patient 13:02,BP: 176/76 M,PULSE: 64,RR: R,SPO2: 96 Ox,ETCO2: ,BG: ,PAIN: ,GCS: , 13:04,BP: / M,PULSE: 68,RR: 12 R,SPO2: 92 Ox,ETCO2: ,BG: ,PAIN: 8,GCS: 15, 13:06,BP: 146/85 M,PULSE: 69,RR: R,SPO2: 95 Ox,ETCO2: ,BG: ,PAIN: ,GCS: , 13:06,Depart Scene 13:08,ALS Assessment,Response: UnchangedSucceeded, 13:09,3-Lead ECG,Response: UnchangedSucceeded, 13:19,At Destination 13:40,Call Closed [facility] [address] [place] [address] EMS Patient Care Report Name: CLAUDIA EVANS Room #: 216-P [facility] IN M.R.#: [id number] Admission: 06/12/21 Attend Phys: Piyush Mak MD Discharge: 06/14/21 Date of : 52 Report #: [id number] Disclaimer v1.1 Copyright 2020 [employer] This EMS Care Summary contains data elements from the applicable legal record (which may be displayed differently). It is designed to provide pertinent information for the following purposes: continuity of care, clinical quality, and state data reporting. The complete legal record is available to ED staff and administrators of the receiving hospital in [employer] Patient Tracker. All data is provided "as is."
[2021-06-12 13:31] VITALS: BP 145/66
[2021-06-12 13:53] LABS: URINE BILIRUBIN NEGATIVE (Negative); URINE BLOOD 1+ (Negative); URINE CLARITY CLEAR; URINE COLOR YELLOW; URINE GLUCOSE-RANDOM* NEGATIVE (Negative); URINE KETONES NEGATIVE (Negative); URINE NITRITE-REFLEX NEGATIVE (Negative); URINE PROTEIN (DIPSTICK) NEGATIVE (Negative); URINE SPECIFIC GRAVITY 1.015 (1.005-1.035); URINE UROBILINOGEN 0.2 E.U./dl (0.2-1.0)
[2021-06-12 13:54] LABS: URINE LEUKOCYTES-REFLEX 1+ (Negative)
[2021-06-12 13:58] LABS: HEMOGLOBIN 13.2 gm/dL (12.0-15.0); MCH 26.3 pg (26.0-34.0); WBC 3.8 thou/uL (4.0-11.0)
[2021-06-12 14:01] LABS: ABSOLUTE NEUTROPHILS 1.9 thou/uL (1.4-8.2); BASOPHILS 0.9 % (0.0-2.0); EOSINOPHILS 0.4 % (0.0-3.0); HEMATOCRIT 41.8 % (37.0-47.0); LYMPHOCYTES 30.2 % (24.0-44.0); MCHC 31.5 g/dL (28.0-37.0); MCV 83.6 fL (80.0-100.0); MONOCYTES 18.1 % (1.0-8.0); PLATELET COUNT 111 thou/uL (150-400); POLYS 50.4 % (36.0-66.0); RDW 17.1 % (10.5-14.5)
[2021-06-12 14:02] LABS: CALCIUM 9.4 mg/dL (8.5-10.1); CREATININE 0.8 mg/dL (0.6-1.0)
[2021-06-12 14:04] LABS: POTASSIUM 4.1 mmol/L (3.5-5.1)
[2021-06-12 14:12] LABS: APTT 46.6 Seconds (24.5-32.8); PROTIME 47.9 Seconds (10.5-12.1)
[2021-06-12 14:14] LABS: INR 4.73
[2021-06-12 14:18] LABS: SQUAMOUS 0-3 Few /LPF (0-3)
[2021-06-12 14:19] LABS: BACTERIA-REFLEX 1-9 Few /HPF (None Seen); URINE RBC 1-2 Rare /HPF (NONE SEEN); URINE WBC-REFLEX 6-15 Few /HPF (0-5)
--- NOTE | 2021-06-12 15:01 | EKG ---
[address] [employer] [address] ELECTROCARDIOGRAM REPORT Name: CLAUDIA EVANS [id number] Admission: 06/12/21 Attend Phys: Discharge: Date of : 52 Report #: [id number] 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 : 1950 Requested By: Terence Robles Order Number: [id number] MD: Ronni Jefferson Measurements Intervals [place] Rate: 73 P: VA: QRS: 80 QRSD: 118 T: 87 QT: 485 QTc: 535 Interpretive Statements Atrial fibrillation Nonspecific T abnormalities, lateral leads Compared to ECG 05/26/2021 03:18:32 T-wave abnormality now present Electronically Signed On 06-12-2021 15:01:37 CDT by Ronni Jefferson [email or web address] <ELECTRONICALLY SIGNED> By: Ronni Jefferson MD, [facility] 06/12/21 1501 1404 1404 Rnoni Jefferson MD, FACC /EPI
[2021-06-12 21:06] LABS: ALBUMIN 4.1 g/dL (3.4-5.0)
[2021-06-12 23:28] VITALS: BP 143/45
[2021-06-13 05:20] LABS: HEMATOCRIT 40.6 % (37.0-47.0); HEMOGLOBIN 13.3 gm/dL (12.0-15.0); MCH 27.4 pg (26.0-34.0); MCHC 32.7 g/dL (28.0-37.0); MCV 83.8 fL (80.0-100.0); RBC 4.85 mil/uL (4.20-5.00); RDW 17.1 % (10.5-14.5); WBC 4.4 thou/uL (4.0-11.0)
[2021-06-13 05:56] LABS: CALCIUM 8.7 mg/dL (8.5-10.1); CREATININE 0.9 mg/dL (0.6-1.0); MAGNESIUM 2.1 mg/dL (1.8-2.4); POTASSIUM 3.6 mmol/L (3.5-5.1)
[2021-06-13 08:00] VITALS: BP 139/64
[2021-06-13 11:01] LABS: INR 3.25; PROTIME 33.5 Seconds (10.5-12.1)
[2021-06-13 21:03] VITALS: BP 147/66
--- NOTE | 2021-06-14 01:14 | NUR ---
PT IS AN ADMIT FOR SWELLING OF RIGHT ARM AND ARM IN A SLING. PAIN MANAGEMENT WITH MEDS AND ICE PACK FOR COMFORT. ADMISION ELEVATED INR AND UTI. WEAKNESS PT IS PLEASANT WITH HISTORY ALERT AND ORIENTED X4. LUNGS ARE CLEAR ON 2 LITERS NASAL CANULA. ABDOMEN IS SOFT BOWEL SOUNDS ACTIVE X4. CALL LIGHT WITHIN REACH IF NEEDS ASSISTANCE PER NURSING
[2021-06-14 04:32] LABS: CALCIUM 9.6 mg/dL (8.5-10.1); CREATININE 0.7 mg/dL (0.6-1.0); MAGNESIUM 2.4 mg/dL (1.8-2.4); POTASSIUM 3.9 mmol/L (3.5-5.1)
[2021-06-14 04:33] LABS: INR 2.9
[2021-06-14 04:45] VITALS: BP 117/65
[2021-06-14 05:16] LABS: HEMOGLOBIN 12.9 gm/dL (12.0-15.0); MCH 26.8 pg (26.0-34.0); MCHC 32.2 g/dL (28.0-37.0); MCV 83.2 fL (80.0-100.0); RBC 4.81 mil/uL (4.20-5.00); RDW 16.9 % (10.5-14.5); WBC 6.6 thou/uL (4.0-11.0)
[2021-06-14 08:10] VITALS: BP 132/63
--- NOTE | 2021-06-14 08:51 | 2DMMODE ---
[facility] [place] [address] 2 D/M-MODE ECHOCARDIOGRAM Name: CLAUDIA EVANS Room #: 216-P ADM IN M.R.#: [id number] Admission: 06/12/21 Attend Phys: Piyush Mak MD Discharge: Date of : 52 Report #: [id number] THIS REPORT FOR: cc: Dai Valencia MD,Dai Jefferson,Ronni [facility] ~ APPROVED REPORT Study performed: 06/14/2021 08:14:15 EXAM: Limited 2D, Doppler, and color-flow Echocardiogram Patient Location: Bedside Room #: 216 Status: routine BSA: 1.76 HR: 68 bpm BP: 117/65 mmHg Rhythm: Atrial Fibrillation Other Information Study Quality: Adequate Technically limited study due to inability to position patient, COPD. Indications Limited echo for chest pain. LV function. Rule out pericardial effusion. Hx: MV replacement, Afib, russell. (Complete echo done 04/03/2021). Tricuspid Valve TR Peak Monster.: 2.40 m/s RAP Estimate: 5.00 mmHg TR Peak Gr.: 25.00 mmHg PA Pressure: 30.00 mmHg Left Ventricle The left ventricle is normal size. Normal wall motion in visualized caruso. There is normal left ventricular wall thickness. Left ventricular systolic function is normal. LVEF is 55-60%. Aortic Valve Trace aortic regurgitation. Mitral Valve History of MV replacement. There is no mitral valve regurgitation [facility] [address] [place] [address] 2 D/M-MODE ECHOCARDIOGRAM Name: CLAUDIA EVANS Room #: 216-P ADM IN .R.#: [id number] Admission: 06/12/21 Attend Phys: Piyush Mak MD Discharge: Date of : 52 Report #: [id number] noted. Tricuspid Valve The tricuspid valve is normal in structure. Moderate tricuspid regurgitation. Estimated PAP is 30mmHg. Great Vessels IVC is normal in size and collapses >50% with inspiration. Pericardium There is no pericardial effusion. <Conclusion> Limited echocardiogram Normal left ventricular size/wall thickness Ejection fraction 60% Normal right ventricular size/function Left atrium mildly dilated Aortic valve poorly seen, trace if aortic valve insufficiency Moderate mitral annular calcification/ history of a mitral valve replacement No mitral valve insufficiency No mild to moderate tricuspid valve insufficiency Pulmonary systolic pressure estimated 30 mmHg Normal aortic root size No pericardial effusion <ELECTRONICALLY SIGNED> By: Ronni Jefferson MD, FACC 06/14/2151 0 0 Ronni Jefferson MD, FACC /INF
[2021-06-14 11:50] VITALS: BP 122/97
[2021-06-14] MEDS ORDERED: CEPHALEXIN500 MG PO (12:13)
[2021-06-14] MEDS ORDERED: CEFUROXIME250 MG PO (12:16)
--- NOTE | 2021-06-14 15:32 | NUR ---
Pt dc'd to home today prior to being seen by cm. Call rec'd from [facility] barr[facility] that the pt is currently on service with them. She will call the pt's pcp office for continuation orders.
[2021-06-14 16:02] VITALS: BP 122/97
[2021-06-14 16:15] VITALS: BP 126/51
--- NOTE | 2021-06-14 17:25 | NUR ---
Pt discharged to home at this time. Pt accompanied with family member and discharged via personal vehicle. discharge instructions and education completed and patient has no questions at time of discharge.
--- NOTE | 2021-06-14 17:31 | NUR ---
PT WAS DISCHARGE TO FAMILY, PRIVATE RIDE, PT HAS NO QUESTIONS OR CONCERNS, PT VERY PLEASANT, NO COMPLAINTS, NO CONCERNS. DISCHARGE INSTRUCTIONS WAS GIVEN BY BRYAN LEMA RN SENT WITH PT.
== END 2021-06-14 17:30 | disposition home health service (06) | DRG 189 ==
LOC: ER 13:24 → 2N 18:02 → EROBS 18:02 → 2N 06-13 21:04
PROVIDERS: Internal Medicine; Nurse Practitioner; ADMIT Hospitalist; ATTEND Hospitalist
DX: J96.00 Acute respiratory failure, unspecified whether with hypoxia or hypercapnia (principal); N39.0 Urinary tract infection, site not specified; I50.32 Chronic diastolic (congestive) heart failure; I48.21 Permanent atrial fibrillation; Z20.822 Contact with and (suspected) exposure to COVID-19; K21.9 Gastro-esophageal reflux disease without esophagitis; E03.9 Hypothyroidism, unspecified; J44.9 Chronic obstructive pulmonary disease, unspecified; D69.6 Thrombocytopenia, unspecified; M25.511 Pain in right shoulder; I49.5 Sick sinus syndrome; I11.0 Hypertensive heart disease with heart failure; G47.33 Obstructive sleep apnea (adult) (pediatric); E11.9 Type 2 diabetes mellitus without complications; E78.00 Pure hypercholesterolemia, unspecified; Z87.891 Personal history of nicotine dependence; Z95.2 Presence of prosthetic heart valve; Z79.82 Long term (current) use of aspirin; Z79.899 Other long term (current) drug therapy; Z79.01 Long term (current) use of anticoagulants; Z86.73 Personal history of transient ischemic attack (TIA), and cerebral infarction without residual deficits
CPT/HCPCS: 10081